=== PATIENT | female | born 1960 | race Caucasian/White ===

== ENCOUNTER 2025-05-25 13:04 | Outpatient (AMB) | payer MEDICARE, SELFPAY ==
--- NOTE | 2025-05-25 13:12 | A.PHYSOV ---
Vital Signs 05/25/25 13:20 Height 5 ft 6.5 in Weight 222 lb BMI 35.3 Intake Visit Reasons: F/U after injection 03/30/2025 -trigger point inj Intake Note: Patient is a 65 year old female here today for follow up after C7-T1 LEE on 03/30/2025. Patient would also like trigger point injections today. Channeler Required: No Allergies aspirin Allergy (Unknown, Verified 05/25/25 13:13) Unknown fentanyl Allergy (Unknown, Verified 05/25/25 13:13) Unknown hydrocodone Allergy (Unknown, Verified 05/25/25 13:13) Unknown latex Allergy (Unknown, Verified 05/25/25 13:13) Unknown methocarbamol (From Robaxin) Allergy (Unknown, Verified 05/25/25 13:13) Unknown morphine Allergy (Unknown, Verified 05/25/25 13:13) Unknown oxybutynin Allergy (Unknown, Verified 05/25/25 13:13) Unknown pregabalin (From Lyrica) Allergy (Unknown, Verified 05/25/25 13:13) Unknown tramadol Allergy (Unknown, Verified 05/25/25 13:13) Unknown viltnmkmccypq-gfdx-fmhnsjsobg-lactate-octoxy Allergy (Unknown, Uncoded 05/25/25 13:13) Unknown HPI Comments Details: History of Present Illness The patient is a 65 year old individual presenting for management of chronic neck pain with trigger point injections. The patient reports that a prior C7-T1 LEE with 60% reduction of her pain provided relief on the right side, but not on the left. Currently, the patient's pain is located on the left side of the neck, radiates down the arm and up into the head, and is rated a 6-7 out of 10. The pain has resulted in significant functional limitations, including being unable to shower for a couple of weeks and difficulty brushing hair due to a large knot and inability to raise the arms. The patient notes a previous injection provided excellent relief from July to March. Today she is requesting trigger point injection bilateral upper trapezius and rhomboid. Pain Description - Location: The patient reports having a pain in the neck. - Laterality: Pain is primarily on the left side, though the patient reports a history of pain on the right side as well. - Radiation: Pain radiates from the neck down the arm and up into the head. - Severity: Current pain level is rated as a 6 or 7 out of 10. - Impact on function: The pain has made it difficult to brush hair, shower for extended periods (couple of weeks), raise arms to wash hair, and walk the dog. - Alleviating factors: A previous injection provided relief from July to March. - Prior treatments: A recent epidural helped the right side but not the left. Procedure: C6-7 LEE 04/14/2020 30% reduction of her pain C7-T1 LEE 08/11/2024 60% reduction of her pain C7-T1 LEE 03/30/2025 60% reduction of her pain PFSH Surgical History (Updated 05/18/25 @ 09:21 by Mary Mathur MA) H/O shoulder surgery Social History (Updated 05/18/25 @ 09:21 by Mary Mathur MA) Alcohol intake: current Alcohol intake frequency: does not drink Patient Tobacco Use Status: Never used Tobacco Use of substances other than those prescribed or required for medical reasons: No Review of Systems Narrative Review of Systems - Neurological: Reports neck pain that radiates down the arm and into the head. - Musculoskeletal: Reports a huge knot in the neck/back area. - Reports difficulty raising arms to wash hair. - Constitutional: Reports episodes of hypotension during painful procedures. Physical Exam Exam Exam: Physical Exam Cervical Spine: Examination of her cervical spine, there is no visible swelling or deformity. She is tender to bilateral upper trapezius with palpable spasm. She is also tender to the rhomboid and paraspinal musculature. Limited range of motion of the cervical spine at end range throughout. Special Tests: Axial Compression test: Negative Spurlings test: Negative Lhermitte's sign is Negative Upper Extremities: Full range of motion bilateral upper extremities. Equal global compensation analyst strength bilaterally. Neuro: Sensation: Intact to upper extremities bilateral to light touch Strength C5 (Elbow Flexion): 5/5 on the left and 5/5 on the right. C6 (Elbow Ext): 5/5 on the left and 5/5 on the right. C7 (Elbow Ext): 5/5 on the left and 5/5 on the right. C8 (Finger Flex): 5/5 on the left and 5/5 on the right. T1 (Finger Abd/Add): 5/5 on the left and 5/5 on the right. DTR: C5 (Biceps): Left 2 Right 2 C6 (Brachioradialis): Left 2 Right 2 C7 (Triceps): Left 2 Right 2 Vasquez sign: Negative No pathologic clonus. No involuntary movement. Vital Signs: BMI result Body Mass Index 35.3 Office Procedures AMB Trigger Point Inject - Phy Therapeutic Injection Details: Trigger point injection bilateral upper trapezius and rhomboid : Patient was educated about the risks, complications and benefits of trigger point injection. Risks and complications include infection, nerve damage, bleeding, collapsed lung. After discussing these risks complications and benefits the patient is eager to proceed. The patient's left upper trapezius and 3 rhomboid muscle spasm was marked cleansed with an alcohol prep. 1 mL of 1% lidocaine was injected into the trigger point with needling. Patient tolerated the procedure well without immediate complication. The procedure was repeated on the right. 26702-Jcxeafv Point Injection 3 or more All charges added?: Procedure code (CPT) selection complete Office Meds lidocaine (PF) 20 mg/mL (2 %) injection solution Performing Provider: DAVIE Babb Performing Location: [facility] Administered by: DAVIE Babb on 05/25/25 16:01 Dose Route Admin Location Dispensed Lot Number Expiration Date [facility] Journeyman Level Acoustic Analyst 160 mg IM 50 mL [id number] Total Dispensed Waste 50 mL 0 % Assessment & Plan Assessment & Plan (1) Cervical radiculopathy: Code(s): M54.12 - Radiculopathy, cervical region Category: Medical (2) Myalgia: Code(s): M79.10 - Myalgia, unspecified site Category: Medical Plan Pain Management - Affect: The pain is significantly impacting the patient's quality of life and ability to perform activities of daily living. - Analgesia: A previous epidural provided partial relief on the right side. - An injection in July provided relief until March. - Current pain is a 6-7/10, and the patient is hoping for trigger point injections to settle it. - Adverse Effects: The patient reports that blood pressure tends to drop during painful procedures. - Activities of Daily Living: The patient reports being unable to shower for a couple of weeks, difficulty brushing hair, and difficulty walking the dog due to pain. - Aberrant Drug Related Behaviors: The patient expresses a desire to avoid stronger medication, stating, I don't want to. Plan Patient was informed and verbally consented to the use of an ambient scribe for clinic note documentation during this visit. 1. Myofascial Pain Syndrome The patient presents with persistent left-sided neck pain rated 6-7/10 with radiation to the arm and head, causing significant functional limitations. Relief from a prior epidural was limited to the right side. The patient requested trigger point injections for symptomatic relief. 2 cervical radiculitis patient responded well to C7-T1 LEE. She will continue her home exercise plan and medications as prescribed. After obtaining consent, trigger point injections with lidocaine were performed. Four trigger points were injected on the more symptomatic left side first, followed by four injections on the right side to prevent contralateral symptoms, as requested by the patient. The patient tolerated the procedure well and was advised to return if symptoms do not improve. I recommend moist heat compresses for 15 minutes up to 5 times daily. Continue her home exercise plan and medications otherwise as prescribed. Insert thank Orders: Orders AMB Trigger Point Injection - Physiatry Today M79.10 - Myalgia, unspecified site Coding Level of Care Code Tele Est Pt Level 3 (23810) Diagnoses Cervical radiculopathy M54.12 Myalgia M79.10 CPT Codes Therapeutic Injection - Ther Injection 2: [id number]-[id number] Point Injection 3 or more ([id number])
[2025-05-25 13:20] VITALS: BMI 35.3
--- OUTSIDE RECORDS SUMMARY | 2025-05-25 16:43 | XMS_ITS | Encounter Summary ---
Author Organization [facility] Address [address] [place] [address] Phone Care Team Providers Care Plastics Worker Name Role Phone Lucila Madrid RN Unavailable [phone] Joellen Green DO Primary Care Provider [phone] Nieves Werner MD Unavailable [phone] Bonny Saenz RN Unavailable [email or web address] Pcp, Unknown Primary Care Provider Unavailabl e Joellen Green DO Primary Care Provider [phone] Joellen Green DO Unavailable [phone] Joellen Green DO Primary Care Provider [phone] Donal Falk MD Primary Care Pr ovider Encounter Details Date Type Department Care Team (Late st Contact Info) Description 09/22/2021 Ancillary Orders [facility] [address] [place] [address] Joellen Green DO [address] [place], [place] [id number] [email or web address] Abnormal finding on breast imaging Social History Tobacco Use Types Packs/Day Years Used Date Smoking Tobacco: Never Smokeless Tobacco: Never Alcohol Use Standard Drinks/Week Comments No 0 (1 standard drink = 0.6 oz pur e alcohol) Comments No Sex and Gender Information Value Date Recorded Sex Assigned at Female 12/01/2019 10:59 AM EDT Legal Sex Female 6:09 AM EST Gender Identity Female 12/01/2019 10:59 AM EDT Sexual Orientation Straight 12/01/2019 10 :59 AM EDT documented as of this encounter Plan of Treatment Upcoming Encounters Date Type Department Care Team (Late st Contact Info) Description 07/16/2025 12:10 PM EST Office Visit [facility] [address] [place] [address] Mainor Cody DO [address] [place] [address] [email or web address] documented as of this encounter Goals Goal Patient Goal Type Associated Problems Recent Progress Patient-Stated? Author Reduce and/or manage chronic pain Care Plan Chronic Pain/Pain Management Issues No change(2020 1:36 PM EDT) No Sisi Christensen, RN Note: Barriers: Access to Medications documented as of this encounter Results * BI MAMMOGRAM DIAGNOSTIC WITH TOMOSYNTHESIS WITH CAD (LEFT) (11/17/2021 2:50 PM EDT) Anatomical Region Laterality Modality Breast Left, Breast Bilateral Left Ma mmography 11/17/2021 2:25 PM EDT Impressions 11/17/2021 3:07 PM EDT Left Breast: Negative, no suspicious mammographic findings. Left Assessment: BI-RADS 1 Negative. Left Recommendation: Left Mammography Screening Left Recommendations Due Date: 10 Months Results were discussed with the patient at the time of the study. OVERALL Assessment: BI-RADS 1 Negative. The recommendation above has been entered into a reminder system to monitor and facilitate patient compliance. Narrative 11/17/2021 3:07 PM EDT Indication: Questioned left focal asymmetry on recent screening mammogram. TECHNIQUE: Digital Mammography and tomosynthesis were used to obtain images. Computer Aided Detection was used to aid in interpretation. COMPARISON: Comparison is made with relevant prior imaging in PACS. Density: There are scattered areas of fibroglandular density FINDINGS: Left Breast: The focal asymmetry questioned on the recent screening study in the central inner breast does not persist on additional imaging, consistent with benign superimposition of breast parenchyma. Parenchymal pattern in this area is similar compared to prior mammograms from 2018 and 2017. No significant masses, suspicious calcifications, or other abnormalities are seen. Procedure Note Micheal Cervantes MD - 11/17/2021 Indication: Questioned left focal asymmetry on recent screening mammogram. TECHNIQUE: Digital Mammography and tomosynthesis were used to obtain images. ComputerAided Detection was used to aid in interpretation. COMPARISON: Comparison is made with relevant prior imaging in PACS. Density: There are scattered areas of fibroglandular density FINDINGS: Left Breast: The focal asymmetry questioned on the recent screening study in thecentral inner breast does not persist on additional imaging, consistentwith benign superimposition of breast parenchyma. Parenchymal pattern inthis area is similar compared to prior mammograms from 2018 and 2017. Nosignificant masses, suspicious calcifications, or other abnormalities areseen. IMPRESSION: Left Breast: Negative, no suspicious mammographic findings. Left Assessment: BI-RADS 1 Negative. Left Recommendation: Left Mammography Screening Left Recommendations Due Date: 10 Months Results were discussed with the patient at the time of the study. OVERALL Assessment: BI-RADS 1 Negative. The recommendation above has been entered into a reminder system tomonitor and facilitate patient compliance. us Joellen Green DO IMG MG EXAMS Final Resul t documented in this encounter Visit Diagnoses Diagnosis Abnormal finding on breast imaging Abnormal finding on breast imaging documented in this encounter Additional Health Concerns Active Problems Noted Date Diagnosed Date Chronic Pain/Pain Management Issues 10/24/2019 Infection Onset Date Last Indicated Resolved Time CoV-Presumed 07/18/2022 07/18/2022 08/08/2022 1:23 AM EST Assessment Noted Time PHQ-9 Depression Total Score: 8 11/30/19 18 1:21 PM EDT PHQ-2 Depression Total Score: 2 03/15/20 21 12:41 PM EDT documented as of this encounter Care Teams Plastics Worker Relationship Specialty Start Date End Date Joellen Green DO [address] [address] [email or web address] PCP - General Family Medicine 06/01/20 06/11/22 Pcp, Unknown PCP - General 06/12/22 07/17/22 Joellen Green DO [address] [facility] [place] [address] [email or web address] PCP - General Family Medicine 07/18/22 11/07/22 Joellen Green DO [address] [place] [address] [email or web address] PCP - General Family Medicine 11/08/22 05/14/23 Donal Falk MD [address] [place] [address] PCP - General Family Medicine 05/15/23 Lucila Madrid RN [address] [place] [id number] [email or web address] Registered Nurse 03/20/17 Nieves Werner MD [address] [place] [address] [email or web address] Cardiology 05/30/21 Bonny Saenz, KAREEM [address] [place] [address] [email or web address] TMP Unit Controller 08/04/21 05/11/22 Joellen Green DO [address] [place] [address] [email or web address] Insurance Assigned Provider 10/02/20 09/30/22 documented as of this encounter Additional Source Comments The information contained in this document represents components of the legal health record. It is not the complete legal health record.[facility]
--- OUTSIDE RECORDS SUMMARY | 2025-05-25 16:43 | XMS_ITS | Encounter Summary ---
Author Organization [facility] Address [address] [place] [phone] Phone Care Team Providers Care Polysom Tech Name Role Phone Cristina Block MD Unavailable Lucila Madrid RN Unavailable [phone] Joellen Green DO Primary Care Provider [phone] Ghanshyam Kc RN Unavailable [email or web address] Nieves Werner MD Unavailable [phone] Bonny Saenz RN Unavailable [email or web address] Pcp, Unknown Primary Care Provider Unavailabl e Joellen Green DO Primary Care Provider [phone] Joellen Green DO Unavailable [phone] Joellen Green DO Primary Care Provider [phone] Donal Falk MD Primary Care Pr ovider Encounter Details Date Type Department Care Team (Late st Contact Info) Description 05/30/2021 Procedure Pass [facility] Cardiology Department [facility] - [address] [facility] [place] [address] Social History Tobacco Use Types Packs/Day Years [...] 12:10 PM EST Office Visit [facility] [place] [address] Mainor Cody DO [address] [place] [phone] documented as of this encounter Goals Goal Patient Goal Type Associated Problems Recent Progress Patient-Stated? Author Reduce and/or manage chronic pain Care Plan Chronic Pain/Pain Management Issues No change(2020 1:36 PM EDT) No Sisi Christensen, RN Note: Barriers: Access to Medications documented as of this encounter Visit Diagnoses Not on filedocumented in this encounter Additional Health Concerns Active Problems Noted Date Diagnosed Date Chronic Pain/Pain Management Issues 10/24/2019 Infection Onset Date Last Indicated Resolved Time CoV-Exposed Comment:Recent close contact documented in the COVID-19 Amb Triage Form 06/05/2021 06/06/2021 06/20/2021 1:[address] CoV-Presumed 07/05/2021 07/05/2021 07/20/2021 3:53 PM EST CoV-Presumed 07/18/2022 07/18/2022 08/08/2022 1:23 AM EST Assessment Noted Time PHQ-9 Depression Total Score: 8 11/30/19 18 1:21 PM EDT PHQ-2 Depression Total Score: 2 03/15/20 21 12:41 PM EDT documented as of this encounter Care Teams Polysom Tech Relationship Specialty Start Date End Date Joellen Green DO [address] [address] PCP - General Family Medicine 12/8/20 12/18/22 Pcp, Unknown PCP - General 06/12/22 07/17/22 Joellen Green DO [address] [place] [address] [email or web address] PCP - General Family Medicine 07/18/22 11/07/22 Joellen Green DO [address] [place] [address] [email or web address] PCP - General Family Medicine 11/08/22 05/14/23 Donal Falk MD [address] [place] [address] PCP - General Family Medicine 05/15/23 Cristina Block MD [address] [place] [address] [email or web address] Historical LMR Provider 01/07/17 07/02/21 Lucila Madrid RN [address] [place] [phone] [email or web address] Registered Nurse 03/20/17 Ghanshyam Kc, KAREEM [address] [place] [address] [email or web address] TMP Shotblaster 03/29/21 08/03/21 Nieves Werner MD [address] [place] [address] [email or web address] Cardiology 05/30/21 Bonny Saenz RN [address] [place] [address] [email or web address] TMP Shotblaster 08/04/21 05/11/22 Joellen Green DO [address] [address] [email or web address] Insurance Assigned Provider 10/02/20 09/30/22 documented as of this encounter Additional Source Comments The information contained in this document represents components of the legal health record. It is not the complete legal health record.[facility]
--- OUTSIDE RECORDS SUMMARY | 2025-05-25 16:43 | XMS_ITS | Clinical Summary ---
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 has normalized Denies recent illness Will continue to work on healthy lifestyle modifications No need for further workup at this time given normalization Noted elevated anion gap on CMP today - probably due to hyperglycemia and dehydration Glucose 164 today Advised increasing water intake and repeating the lab in one week Atypical chest pain 03/15/2021 01/10/20 Assessment & Plan (03/28/2021 6:55 PM EDT): No recurrence of chest pain since last visit Pending cardiology appt to discuss possible chemical stress test Assessment & Plan (03/15/2021 3:18 PM EDT): Hasn't had it for two weeks For three weeks before, once per week would wake up in the middle of the night with crushing, heavy pressure across center of her chest 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 Couldn't reproduce the pain with palpation When on Benjamín previously, saw a rn otolaryngology (this was years ago) did a stress test, echo Saw rn otolaryngology in [place] in 2019 but none currently During these episodes, pain lasted five minutes and went away with deep breathing Hx DM Dad with CAD Cannot tolerate exercise stress test Plan: Refer to cardiology for establishment of care and likely coordination nuclear stress test Candidiasis of breast 03/15/20212020 Assessment & Plan (03/28/2021 6:55 PM EDT): Resolved Assessment & Plan (03/15/2021 3:08 PM EDT): Jayashree rash noted beneath fold R breast Seen on breast exam Patient noted persistent itching Worse with sweating Rx Nystatin Grief 11/29/2020 05/23/2021 Assessment & Plan (11/29/2020 2:16 PM EDT): Patient's father this morning Fell twice in the past week +Frailty ? 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 No injury. Tendinitis on and off over years, but never swollen like this. Fingers swollen. Had to remove ring. Pain shoots up into elbow. Pain mostly in extension and hurts to straighten fingers. Not red or hot- no skin changes- no signs cellulitis. Left is usually her good arm. Very limiting. Can't take ibuprofen- upsets stomach. Dolobid makes heart race. Does not take anymore. Recent normal thyroid and lytes. Try meloxicam. Aware this is an NSAID and can have the same SE as the other 2 but will try and see. If after one week, no better, then get xray to see if sig arthritis. consider hand surg consult for better diagnosis as needed. Wear soft wrist brace for support. Vertigo 12/11/2019 01/09/2022 Assessment & Plan (12/11/2019 1:24 PM EDT): Always has a low level of vertigo - to the right side, but now much worse in last 2-3 days. Feels like falling to right and left. Room spinning if turns head fast. Cannot do self- wesley maneuver due to neck pain. Vertigo has worsened in the past from medications- both statins and levothyroxine. Last week changed three medications all at once. [place] thyroid to levothyroxine Simvastatin to atorvastatin And increased dose of nortriptylline from 25 mg to 50 mg. Plan: be careful not fall. Sent in meclizine- aware of sedation. Stop statin and decrease tricyclic back to 25 mg. Continue levothyroxine. Hopefully vertigo will improve. If not then will have to change back to armour. If improves, then add other meds back in one per week so she can determine which one may be the trigger. Check back in 1-2 weeks and we will make usp plan. Cough 07/23/2019 03/15/2021 Assessment & Plan (07/23/2019 10:34 AM EST): Cough with rales/ rhonchi on exam. Check cxr. Doxy will cover sinusitis and PNA but would like to confirm diagnosis. Declines medrol dose pack. Lungs with poor air mvmt though po2 ok so far. Mildly labored on exam- high risk d/t back pain with cough so not taking deep breaths to avoid coughing. Would consider inhaled steroid- but may be expensive. Prefers to start with antibiotic and albuterol for now. Will call if not improving. Dysuria 07/10/2019 03/15/2021 Assessment & Plan (07/10/2019 9:31 AM EST): Burning with urination for few days. Second aurea ein one month. Same urine culture result : 50-100,000 mixed zakia. Last time took macrobid. Today agrees to cipro- will do 3 days. Aware of SE. If occurs again, send to urology for work up. Weight gain 11/25/2018 03/15/2021 Assessment & Plan (11/25/2018 2:16 PM EDT): 214- 222 in last 1-2 weeks. Feels like eating better than ever in last 1 month. fbg 146- yesterday. Much better- had been in 200s. Actos?- weight gain in lesser known SE. Right hand paresthesia 11/25/201801/09 Assessment & Plan (11/25/2018 2:27 PM EDT): See above- from fall. Segmental and somatic dysfun ction of upper extremity 10/07/2018 04/07/2019 Assessment & Plan (10/07/2018 4:50 PM EDT): Osteopathic procedure: Somatic dysfunction: Verbal consent for Osteopathic treatment obtained from patient. Treated UE, cervical, thoracic spine, ribs with cranial osteopathy, myofascial release, and Balanced ligamentous tension. Pt tolerated procedure well with good relief of discomfort. Will return for re-evaluation prn. Osteopathic treatment was directed not only to the primary area of complaint, but also to the secondary areas of biomechanical compensation. Arm edema 10/03/2018 12/01/2019 Assessment & Plan (10/07/2018 4:47 PM EDT): Upper arm edema on right since fracture. Has gotten slightly better. Still sig larger than left. ROM greatly improved but not back to baseline. Finished home OT. Will send for outpatient follow up. . Doing exercises. Reviewed them with her. One day couple weeks slept on arm and woke with more swelling. Now slightly back down. reviewed signs/symptoms of DVT. Not red, not hot, not tender to touch, good pulses. For now no signs but patient will watch out for them. Reduced ROM from shoulder. PT has kept her from becoming frozen, but still markedly reduced. The decision to perform OMT was based on today's history and physical exam. Closed supracondylar fractur e of right humerus with routine healing 08/01/2018 09/08/2020 Assessment & Plan (08/01/2018 1:12 PM EST): 07/26/18, fell at home. Tripped on blower blast furnace and fell onto right arm. Seen at [facility]. Humerus fracture in two places. Followed by Dr. Orellana. (ortho). Pt has chronic pain syndrome on a good day so now is struggling with mobility, hygiene. Safety at home. morphine use as noted below. Discussed keeping it to minimum to avoid fall risk. Refer for home care for personal hygiene and OT for assistive devices and strategies for household and hygiene task completion in her current state. Thrombocytosis 07/01/2018 01/09/2022 Assessment & Plan (03/17/2021 9:50 PM EDT): Most recent 433 Consistently in 400s Previously discussed with PCP taking low dose ASA, but unable to tolerate due to tinnitus History of iron deficiency anemia Also with RA However, patient with persistent, unexplained pruritis Likely due to inflammation as a result of RA However, will check iron Patient will also be referred to hematology given persistent pruritis and no prior w/u by heme Assessment & Plan (07/02/2018 2:15 PM EST): Cbc and ESR ordered Low back pain 12/10/2017 01/09/2022 Assessment & Plan (12/01/2019 1:35 PM EDT): Stopped morphine about 1 year ago. Takes baclofen prn. Tizanidine too strong. Parafon forte- too expensive. Assessment & Plan (07/02/2018 2:17 PM EST): In more pain, rations morphine due to extreme itching. Dolobid works well , but worried about SE. Uses about 1 weekly . Worried about stroke risk. I agree this is a valid concern (black box warning). She could consider taking it 3-4x/week which would increase risk but not as much as daily. She will consider, keeping risks in mind. Assessment & Plan (03/31/2018 5:05 PM EDT): Uses morphine regularly for pain, though pain worse lately. Does not take more due to severe itching. Meets regularly with pain management doc in [place]. He agrees this is the best ongoing plan, despite reaction. Already on supportive psych meds. Reactions to most other options. No concern for abuse or diversion. Refilled today. Mild persistent asthma with exacerbation 10/09/2017 01/09/2022 Acute non-recurrent maxillary sinusitis 10/19/2016 12/01/2019 Assessment & Plan (07/23/2019 10:35 AM EST): Day 8 of cold symptoms, fever gone and now returned. Feeling worse with new onset ear pain and sinus headache- worse right sided, frontal and maxillary. Treat with doxy. Accidental fall 08/21/2016 12/01/2019 Assessment & Plan (11/26/2018 7:57 PM EDT): Fall at [employer] about 3 weeks ago. Tripped on bricks. Few injuries on feet. Fell on forehead and nose. - lacerations. Left wrist sore. Since fall right numbness and tingling in right hand. Whole hand- rotates, sometimes palm, sometimes just pinky. Tremors that she emailed about now better. Advised to follow up with neurology- Dr Gamble. Not sure if coming from TOS, vs cervical vs periphery. No imaging for now. Continue work with PT. Assessment & Plan (08/21/2016 3:47 PM EST): 3 days ago- on 08/18, passed out and fell down about 7 stairs at friend's house. Was feeling fine that day up until then. Kept in hospital for 2 days on telemetry- all normal- need complete discharge notes. Pt brought imaging reports- all normal: neck, wrist, hip, rib xray and head CT. Concussion without loss of consciousness 08/21/2016 11/25/2018 Assessment & Plan (09/13/2016 12:01 PM EDT): Fall on 08/18. Still with sea sickness feeling. Worse with any activity. Gait unsteady. Makes her feel woozy. Light sensitive, but not nearly as bad as few weeks ago. Had to leave [employer] this past Sunday due to over stimulation from choir- made her nauseas. Hard to focus on getting info ready for taxes. Headaches- worse with more focus and activity. Bruise on head almost gone. Although pt is frustrated by slow recovery, her exam is normal and symptoms are within normal for concussion. Reassured her. Reviewed screen and activity restrictions. She has not taken morphine three weeks as she is worried about affects on her brain--she took once since fall and felt very woozy--that was 3 weeks ago. Advised her to try again at night time on a day when nothing to do next day. Poor sleep from pain won't help recovery. Assessment & Plan (08/21/2016 7:54 PM EST): Actually hard to tell if LOC because fell after syncope, then patient not sure how long until she regained consciousness. - prob few minutes. Watson snot remember anything until in ambulance, but according to friend was talking before that and gave her sister's phone number. Hit head on floorboard as she came down steps. Now with blurry vision, +headache- better with icing. Having some vertigo and sea sick like illness. +nausea. Neg neuro exam except slow on finger to nose and + nystagmus equal emilie. Discussed concussion precautions- limit screen time, rest, treat pain prn though limit morphine if possible as may worsen mental status. Will refer to neuro prn. Syncope and collapse 08/21/2016 019 Assessment & Plan (01/20/2017 9:18 AM EDT): Pt has had not further episodes. Ok to resume driving at 6 month ravi- end of January. Assessment & Plan (09/13/2016 11:57 AM EDT): [facility] cardiology- [facility] [place] last week. Dr. Guerin. [phone] Scheduled echo, stress test and 30 day monitor. Will request note. Should also f/u with neurology- placed referral, she has not heard from them yet--we will reach out, preferably within one month. I would like input on her med regimen. Assessment & Plan (08/21/2016 7:51 PM EST): ? Cause of syncope. Observed in patient for 2 days. Discharge summary indicates possible multiple medications, but having known this patient, she is actually on lower doses now than she was in the past. Was on cymbalta in addition to the savella- stopped last year. While this is possible, not top on my list. All of the current meds are considered essential to patient. Discussed possibility of discontinuing each one--she rejects idea. Without clear evidence will keep regimen same for now. ordered MRI/MRA- plan neuro referral based on results. For now cardio referral for eval and event monitor. Pt cannot drive for now due to concussion--not sure how long that will last. Elderly father has to take to app so requests cardio she knows in [place]- agreed, though urged her to consider [facility] if possible. Foreign body in right foot 08/02/2016 0 08/21/2017 Assessment & Plan (08/03/2016 11:46 AM EST): Small calloused FB in middle of right heel. No signs surrounding irritation or infection. No end or edge palpable for removal. Refer to podaitry for assessment and possible removal. Encounters Date Type Department Care Team Description 05/18/2025 Telephone [facility] [address] [place] [address] [place] [phone] Lexus Monique MA 03/16/2025 Refill [facility] [address] [place] [address] Mainor Cody, Medication Refill from Last 3 Months Immunizations Immunization Administration Dates Next Due COVID-19 (Pre-04/16) Pfizer Vaccine, mRNA, PF 02/06/2021,09/30/2020,09/09/2020 Influenza Quadrivalent MDCK Preservative Free IM 07/02/2018 Influenza Quadrivalent Prese rvative Free IM 05/27/2021,04/18/2019,04/19/2017,05/24 Influenza Recombinant Hernandez valent Preservative Free IM 05/09/2022,04/15/2020 Influenza, Unspecified Formulation 04/18/2019 Pneumococcal polysaccharide PPSV23 02/07/2020 Tdap 01/18/2022 Zoster recombinant 01/23/2023 Family History Medical History Relation Comments Coronary artery disease Father Hypothyroidism Father hypothyroidism Skin cancer Father Hypothyroidism Mother hypothyroidism Multiple sclerosis Mother Multiple scle rosis Skin cancer Mother Breast cancer Paternal Aunt Type 2 Diabetes Unspecified diabetes mellitu s type 2 Early CAD Neg Hx Relation Status Comments Father Mother Paternal Aunt Unspecified Social History Tobacco Use Types Packs/Day Years Used Date Smoking Tobacco: Never Smokeless Tobacco: Never Tobacco Cessation:Counseling Given: Not Answered Alcohol Use Standard Drinks/Week Comments No 0 (1 standard drink = 0.6 oz pur e alcohol) Education Answer Date Recorded Are you interested in more education? Not on florence e 10/20/2022 Are you concerned about learning? Not on file 10/20/2022 No 10/20/2022 No 10/20/2022 Digital Access Answer Date Recorded No 11/15/2022 No 11/15/2022 Reliable internet access at home? Not on file 11/15/2022 Device with a working camera? Not on file Comments No Sex and Gender Information Value Date Recorded Sex Assigned at Female 12/01/2019 10:59 AM EDT Legal Sex Female 6:09 AM EST Gender Identity Female 12/01/2019 10:59 AM EDT Sexual Orientation Straight 12/01/2019 10 :59 AM EDT Last Filed Vital Signs Vital Sign Reading Time Taken Comments Blood Pressure 110/60 01/15/2025 11:51 AM EDT Pulse 87 01/15/2025 11:51 AM EDT Temperature 36.5 C (97.7 F) 03/21/2022 11:00 AM EDT Respiratory Rate 16 10/04/2021 10:5 4 AM EDT Oxygen Saturation 99% 01/15/2025 11: 51 AM EDT Inhaled Oxygen Concentration - - Weight 100.7 kg (222 lb) 01/09/2022 9:4 8 AM EDT patient reported Height 168.9 cm (5' 6.5 ) 09/25/2024 10 :34 AM EDT Body Mass Index 35.29 01/09/2022 9:48 AM EDT Plan of Treatment Upcoming Encounters Date Type Department Care Team (Late st Contact Info) Description 07/16/2025 12:10 PM EST Office Visit [facility] [address] [place] [address] [phone] Mainor Cody DO [address] [place] [phone] .[facility] Health Maintenance Due Date Last Done Comments COLOGUARD 2007 COLONOSCOPY 2007 COLORECTAL CANCER SCREENING 2007 FIT TEST 2007 FOBT 2007 SIGMOIDOSCOPY 2007 VIRTUAL COLONOSCOPY 2007 RSV VACCINE (1 - Risk 50-74 years 1-dose series) 2012 DIABETIC EYE EXAM 02/27/2018 02/27/2017, , 02/27/2017, Additional history exists PNEUMOCOCCAL VACCINES (50+ years) (2 of 2 - PCV) 02/06/2021 02/07/2020 PAP SMEAR 11/16/2021 11/16/2016, 11/16/2016 DEPRESSION SCREENING 01/09/2023 01/09/2022, 01/10/20 22 ZOSTER VACCINES (2 of 2) 03/20/2023 01/23/2023 CREATININE LEVEL 10/17/2023 10/16/2022, , 04/13/2022, Additional history exists POTASSIUM LEVEL 10/17/2023 10/16/2022, 07/26, 04/13/2022, Additional history exists INFLUENZA VACCINE (#1) 2025 2, 05/27/2021, 04/15/2020, Additional history exists COVID-19 VACCINE ( season) 2025 06/15/2022, 02/06/2021, 09/30/2020, Additional history exists HEMOGLOBIN A1C 03/26/2025 09/24/2024, 06/0 11/2023, 05/02/2023, Additional history exists BLOOD PRESSURE 07/18/2025 01/15/2025 MAMMOGRAM 11/03/2025 11/03/2024, 10/23, 09/15/2022, Additional history exists Adult Td,Tdap Booster 01/19/2032 01/18/2022 HIV ONE-TIME SCREENING (18-65 YEARS) Completed 03/26/2018 HEPATITIS C SCREENING Completed 06/03/2020 , 06/03/2020, 06/03/2020, Additional history exists SMOKING STATUS SCREENING (Once After 26 Yrs) Completed 09/25/2024 HEPATITIS A VACCINES Aged Out No long er eligible based on patient's age to complete this topic HIB VACCINES Aged Out No longer eligi ble based on patient's age to complete this topic MENINGOCOCCAL VACCINES (ACWY) Aged Out No longer eligible based on patient's age to complete this topic MENINGOCOCCAL VACCINES (B) Aged Out N o longer eligible based on patient's age to complete this topic Goals Goal Patient Goal Type Associated Problems Recent Progress Patient-Stated? Author Reduce and/or manage chronic pain Care Plan Chronic Pain/Pain Management Issues No change(2020 1:36 PM EDT) No Sisi Christensen, RN Note: Barriers: Access to Medications Medical Devices Not on file Procedures Procedure Name Priority Date/Time Associated Diagnosis Comments POCT HEMOGLOBIN A1C Routine 11/29/2023 1 2:14 PM EDT Type 2 diabetes mellitus with diabetic mononeuropathy, with long-term current use of insulin COMPREHENSIVE METABOLIC PANEL (CMP) Routine 10/16/2022 12:16 PM EDT Rheumatoid arthritis involving multiple sites with positive rheumatoid factor BI MAMMOGRAM SCREENING WITH TOMOSYNTHESIS WITH CAD (BILATERAL) Routine 09/15/2022 11:24 AM EDT Visit for screening HEPATITIS C ANTIBODY, QUALITATIVE Routine 06/03/2020 1:29 PM EST Rheumatoid arthritis involving multiple sites with positive rheumatoid factor PAP TEST Routine 11/16/2016 12:00 AM EDT from Last 3 Months or Most Recently Relevant to Health Maintenance Results * (ABNORMAL) POCT Hemoglobin A1c (11/29/2023 12:14 PM EDT) Hemoglobin A1c 7.2(A) 4.2 - 5.8 % Other 11/29/2023 12:1 4 PM EDT Mainor Cody LAB POCT ENTER/EDIT ORDERABLES F inal Result * (ABNORMAL) Comprehensive metabolic panel (10/16/2022 12:16 PM EDT) SODIUM 139 136 - 145 mmol/L [facility] POTASSIUM 4.3 3.5 - 5.2 mmol/L [facility] CHLORIDE 100 95 - 106 mmol/L [facility] CO2 24 20 - 31 mmol/L [facility] BUN 16 9 - 23 mg/dL [facility] CREATININE 0.86 0.50 - 1.30 mg/dL [facility] GLUCOSE 158(H) 74 - 106 mg/dL [facility] ALBUMIN 4.2 3.5 - 4.8 g/dL [facility] TOTAL PROTEIN 7.2 5.7 - 8.2 g/dL [facility] CALCIUM 9.6 8.7 - 10.4 mg/dL [facility] ALKALINE PHOSPHATASE 62 27 - 129 U/L [facility] TOTAL BILIRUBIN 0.4 0.0 - 1.0 mg/dL [facility] AST 12 6 - 40 U/L [facility] ALT 19 10 - 49 U/L [facility] GLOBULIN 3.0 1.9 - 4.1 g/dL [facility] EGFR 77 >60 mL/min/1.7 3m2 [facility] Comment:Estimated glomerular filtration rate calculated using the CKD-EPI refit equation. ANION GAP 15 3 - 17 mmol/L [facility] Blood 10/16/2022 12:1 6 PM EDT 10/16/2022 1:00 PM EDT us Angeline Hu MD LAB BLOOD BKR ORDERABLES F inal Result [facility] [address] [place] [address] * BI MAMMOGRAM SCREENING WITH TOMOSYNTHESIS WITH CAD (BILATERAL) (09/15/2022 11:24 AM EDT) Anatomical Region Laterality Modality Breast Left, Breast Right, Breast Bilateral Bila teral Mammography 09/15/2022 11:4 6 AM EDT Impressions 09/15/2022 11:51 AM EDT Negative, no mammographic evidence of malignancy. Routine screening mammography is recommended in one year. OVERALL Assessment: BI-RADS 1 Negative. The patient was sent a letter with the results of the exam and follow-up recommendation. The recommendation above has been entered into a reminder system to monitor and facilitate patient compliance. Narrative 09/15/2022 11:51 AM EDT BI MAMMOGRAM SCREENING WITH TOMOSYNTHESIS WITH CAD (BILATERAL): Reason for exam: Screening. No new breast complaints. TECHNIQUE: Digital Mammography and tomosynthesis were used to obtain images. Computer Aided Detection was used to aid in interpretation COMPARISON: Comparison is made with relevant prior imaging in PACS. BREAST DENSITY: There are scattered areas of fibroglandular density FINDINGS: There are no suspicious masses, calcifications, or other abnormalities noted. Procedure Note Lakhwinder Parker MD - 09/15/2022 BI MAMMOGRAM SCREENING WITH TOMOSYNTHESIS WITH CAD (BILATERAL): Reason for exam: Screening. No new breast complaints. TECHNIQUE: Digital Mammography and tomosynthesis were used to obtain images. ComputerAided Detection was used to aid in interpretation COMPARISON: Comparison is made with relevant prior imaging in PACS. BREAST DENSITY: There are scattered areas of fibroglandular density FINDINGS: There are no suspicious masses, calcifications, or otherabnormalities noted. IMPRESSION: Negative, no mammographic evidence of malignancy. Routine screening mammography is recommended in one year. OVERALL Assessment: BI-RADS 1 Negative. The patient was sent a letter with the results of the exam and follow-uprecommendation. The recommendation above has been entered into a remindersystem to monitor and facilitate patient compliance. us Joellen Elijah Green DO IMG MG EXAMS Final Resul t * Hepatitis C antibody, qualitative (06/03/2020 1:29 PM EST) HCV ANTIBODY Negative Negative [facility] Comment:Test Methodology: Ad via [email or web address] Blood 06/03/2020 1:29 PM EST 06/03/2020 1:52 PM EST us Angeline Hu MD LAB BLOOD BKR ORDERABLES F inal Result [facility] [address] [place] [address] * Pap Smear (11/16/2016 12:00 AM EDT) 11/16/2016 11/17/2016 8:5 4 AM EDT Narrative SEE NARRATIVE - 11/23/2016 8:26 AM EDT [facility] [address] [place] [address] CHANNELER Cytology Report FINAL DIAGNOSIS A. CERVICAL, LIQUID BASED SPECIMEN: SPECIMEN ADEQUACY: Satisfactory for evaluation; transformation zone present. INTERPRETATION: NEGATIVE FOR INTRAEPITHELIAL LESION OR MALIGNANCY. This specimen was analyzed by the automated ThinPrep Imaging System ([email or web address] and manually rescreened by a screening nurse and/or pathologist. Electronically Signed Out By: ANNMARIE Mccauley(ASCP) ANNMARIE Marte(ASCP) Cervical cytology is a screening test primarily for squamous cancers and precursors and has associated false-negative and false-positive results. New technologies such as liquid-based preparations may decrease but will not eliminate all false-negative results. Regular sampling and follow-up of unexplained clinical signs and symptoms are recommended to minimize false negative results. Interpretation of this material was performed at: [facility], Department of Pathology [address] [address] Diazo Technician: zOzie Robertson M.D. PROCEDURES/ADDENDA HPV Testing (Requested) Ordered Date: 11/17/2016 HPV HIGH RISK NEGATIVE Negative for messenger RNA (mRNA) of the high-risk human papillomavirus (HPV) types 16, 18, 31, 33, 35, 39, 45, 51, 52, 56, 58, 59, 66, and 68 by [employer] HPV assay, a target amplification nucleic acid probe test for the qualitative detection of E6/E7 viral mRNA. CLINICAL HISTORY Date of Last Menstrual Period: Not Provided Menstrual History: Post Menopausal SPECIMEN SOURCE A: CERVICAL, LIQUID BASED SPECIMEN GROSS DESCRIPTION One ThinPrep vial received. Patient Name: CESAR MUNOZYNE : 1960 (Age: 56) Sex: F Institution: [facility] Location: [facility] Date of Collection: 11/16/2016 Date of Reported: 11/23/2016 08:26 Results to: Baylee Guerrero DO Baylee Guerrero DO CYTOLOGY ORDERABLES Final Result SEE NARRATIVE from Last 3 Months or Most Recently Relevant to Health Maintenance Additional Health Concerns Active Problems Noted Date Diagnosed Date Chronic Pain/Pain Management Issues 10/24/2019 Insurance [employer] REPLAC[employer] MEDICARE PART A & B [employer] RE[employer] MEDICARE PART A & B [employer] REPL[employer] MEDICARE PART A & B [employer] REPLAC[employer] MEDICARE PART A & B [employer] REPLAC[employer] MEDICARE PART A & B [employer] REPLAC[employer] MEDICARE PART A & B [employer]MO REPLAC[place] [employer] REPLACEMENT [facility] MEDICARE PREFERRED HMO REPLACEMENT [id number] [employer] REPLAC[employer] REPLACEMENT [facility] [place] [phone] [employer] REPLACEMENT [employer]AC[employer] Advance Directives For more information, please contact: [phone] (9AM - 5PM [facility], Sunday-Sunday) Documents on File Type Date Recorded Patient Yard Assistant Expl anation Healthcare Proxy 01/09/2022 HCP Care Teams Refrigerator Glazier Relationship Specialty Start Date End Date Donal Falk MD [address] [place] [address] PCP - General Family Medicine 05/15/23 Lucila Madrid RN [address] [place] [phone] [email or web address] Registered Nurse 03/20/17 Nieves Werner MD [address] [place] [address] Cardiology 05/30/21 Additional Source Comments The information contained in this document represents components of the legal health record. It is not the complete legal health record.[facility]
--- OUTSIDE RECORDS SUMMARY | 2025-05-25 16:43 | XMS_ITS | Encounter Summary ---
Author Organization [facility] Address [address] [place] [address] Phone Care Team Providers Care Pipe Processor Name Role Phone Lucila Madrid RN Unavailable [phone] Joellen Green DO Primary Care Provider Nieves Werner MD Unavailable [phone] Bonny Saenz RN Unavailable [email or web address] Pcp, Unknown Primary Care Provider Unavailabl e Joellen Green DO Primary Care Provider [phone] Joellen Green DO Unavailable [phone] Joellen Green DO Primary Care Provider Donal Falk MD Primary Care Pr ovider Encounter Details Date Type Department Care Team (Late st Contact Info) Description 11/17/2021 Procedure Pass [facility]- Breast Imaging- [address] [address] Social History Tobacco Use Types Packs/Day Years [...] 12:10 PM EST Office Visit [facility] [address] Mainor Cody DO [address] [place] [address] [email or web address] documented as of this encounter Goals Goal [...] Assessment Noted Time PHQ-9 Depression Total Score: 11 022 9:58 AM EDT PHQ-2 Depression Total Score: 1 01/10/20 22 9:58 AM EDT documented as of this encounter Care Teams Pipe Processor Relationship Specialty Start Date End Date Joellen Green DO 3 Kelsea Dasilav [address] [place] [address] PCP - General Family Medicine 06/01/20 06/11/22 Pcp, Unknown PCP - General 06/12/22 07/17/22 Joellen Green DO 3 Kelsea Dasilva [facility] [place] [address] PCP - General Family Medicine 07/18/22 11/07/22 Joellen Green DO 3 Kelsea Dasilva [address] [place] [address] [email or web address] PCP - General Family Medicine 11/08/22 05/14/23 Donal Falk MD 3 Kelsea Dasilva [address] [place] [address] PCP - General Family Medicine 05/15/23 Lucila Madrid RN [address] [place] [address] [email or web address] Registered Nurse 03/20/17 Nieves Werner MD [address] [place] [address] [email or web address] Cardiology 05/30/21 Bonny Saenz RN [address] [place] [address] [email or web address] Telecommunications Specialist 08/04/21 05/11/22 Joellen Green DO 3 Kelsea Dasilva [address] [place] [address] [email or web address] Insurance Assigned Provider 10/02/20 09/30/22 documented as of this encounter Additional Source Comments The information contained in this document represents components of the legal health record. It is not the complete legal health record.[facility]
--- OUTSIDE RECORDS SUMMARY | 2025-05-25 16:43 | XMS_ITS | Encounter Summary ---
Author Organization [facility] Address [address] [address] Phone Care Team Providers Care Photogrammetrist Name Role Phone Lucila Madrid RN Unavailable [phone] Joellen Green DO Primary Care Provider [phone] Ghanshyam Kc RN Unavailable [email or web address] Nieves Werner MD Unavailable [phone] Bonny Saenz RN Unavailable [email or web address] Pcp, Unknown Primary Care Provider Unavailabl e Joellen Green DO Primary Care Provider [phone] Joellen Green DO Unavailable [phone] Joellen Green DO Primary Care Provider [phone] Donal Falk MD Primary Care Pr ovider Encounter Details Date Type Department Care Team (Late st Contact Info) Description 07/20/2021 Procedure Pass [facility]- Breast Imaging- [address] [address] Social History Tobacco Use Types Packs/Day Years [...] 12:10 PM EST Office Visit [facility] [address] Mainor Cody DO [address] [place] [address] [email or web address] documented as of this encounter Goals Goal Patient Goal Type Associated Problems Recent Progress Patient-Stated? Author Reduce and/or manage chronic pain Care Plan Chronic Pain/Pain Management Issues No change(2020 1:36 PM EDT) No Sisi Christensen, KAREEM Note: Barriers: Access to Medications documented as of this encounter Visit Diagnoses Not on filedocumented in this encounter Additional Health Concerns Active Problems Noted Date Diagnosed Date Chronic Pain/Pain Management Issues 10/24/2019 Infection Onset Date Last Indicated Resolved Time CoV-Presumed 07/05/2021 07/05/2021 07/20/2021 3:53 PM EST CoV-Presumed 07/18/2022 07/18/2022 08/08/2022 1:23 AM EST Assessment Noted Time PHQ-9 Depression Total Score: 8 11/30/19 18 1:21 PM EDT PHQ-2 Depression Total Score: 2 03/15/20 21 12:41 PM EDT documented as of this encounter Care Teams Photogrammetrist Relationship Specialty Start Date End Date Joellen Green DO 3 Kelsea Dasilva [facility] [place] [address] [email or web address] PCP - General Family Medicine 06/01/20 06/11/22 Pcp, Unknown PCP - General 06/12/22 07/17/22 Joellen Green DO [address] [place] [address] [email or web address] PCP - General Family Medicine 07/18/22 11/07/22 Joellen Green DO 3 Kelsea Dasilva [address] [place] [address] [email or web address] PCP - General Family Medicine 11/08/22 05/14/23 Donal Falk MD 3 Kelsea Dasilva [address] [place] [address] PCP - General Family Medicine 05/15/23 Lucila Madrid RN [address] [place] [address] [email or web address] Registered Nurse 03/20/17 Ghanshyam Kc, KAREEM 3 Kelsea Dasilva [address] [place] [address] [email or web address] TMP Smoke Room Operator 03/29/21 08/03/21 Nieves Werner MD [address] [place] [address] Cardiology 05/30/21 Bonny Saenz RN [address] [place] [address] TMP Smoke Room Operator 08/04/21 05/11/22 Joellen Green DO 3 Kelsea Dasilva [address] [place] [address] [email or web address] Insurance Assigned Provider 10/02/20 09/30/22 documented as of this encounter Additional Source Comments The information contained in this document represents components of the legal health record. It is not the complete legal health record.[facility]
--- OUTSIDE RECORDS SUMMARY | 2025-05-25 16:43 | XMS_ITS ---
Care Plan Created on: May 25, 2025 MunozDanielle : 1960 Sex: Female Author Organization [facility] Address [address] [facility] [address] [place] [address] Phone Care Team Providers Care Cement Crusher Operator Name Role Phone Lucila Madrid RN Unavailable [phone] Nieves Werner MD Unavailable [phone] Donal Falk MD Primary Care Pr ovider Active Problems Patient Care Coordination No te [...] She is very connected to a local mandaen. Her sister had been a support in the past but hasn't been lately. Goals of Care (HCP/MOLST): Pt states that Healthcare proxy is her niece, Cristina Mcallister, . No HCP on file. Will complete at next PCP appt. Community Supports( e.g. VNA, DME Vendors, Elder Services): Know to [facility] Transportation: Pt drives herself to appointments. Medication Management System/Specialized Pharmacy Needs: Patient uses [facility] in [place]. Organizes meds using weekly pill box. Financial Concerns: Patient lives off of social security/disability. She does have [employer] making. Reports she has had high medication co-pays in the past, has since been enrolled in a program for the [employer]. Patient encouraged to alert care mgmt if [...] Infusions in past Gets endoscopy, colonoscopy at [facility]; has Keenan's Esophagus Followed by Endocrine, Heme/Onc, [...] Assessment & Plan (01/09/2022 10:31 AM EDT): Vault Cashier Tristian Naik in [place] - pain specialist Dr. Barrett Arnold does [...] stop breathing multiple times Sleep study at [facility] many 10+ years ago, but every mask she would try would wake her up due to masks blowing into her eyes Shared a room with her house mate when in [place] - told her that she stopped breathing [...] Plan (03/17/2021 9:57 PM EDT): Last EGD 2019 Patient due for surveillance EGD as well as screening colonoscopy Same physician did both previously at [facility] She will call to schedule both of [...] - takes MTX Patient will follow with [facility] rheum until able to find someone in [...] fiber to avoid constipation Call GI at [place] to schedule upper and lower endoscopy due to anemia - this month If difficulty scheduling I can refer her to [facility] Follow hematology Mixed stress and urge urinary incontinence 07/02 Assessment & Plan (07/23/2019 10:37 AM EST): Advised appt with uro custom feed mill operator. Pt is very resistant. Will continue to discuss. Assessment & Plan (07/02/2018 2:13 PM EST): Increased urinary incontinence, delicia with stress but sometimes random. Can happen when heard water running or just very full bladder. Long standing problem but worse in last few months. Wears adult diapers. Also not new for her. Refuses pelvic floor PT. Resistant to seeing uro custom feed mill operator, but agrees to go in the spring. [...] Assessment & Plan (05/24/2016 10:36 AM EST): [place] thyroid expensive- $40 for both 30 and [...] Will tell me if she re-considers. Colonoscopy: [facility] fall 2020 - colonoscopy and EGD done. She will get me these records. DEXA: [id number] was normal. Diabetic eye exam: Annually, Dr. Wise in [place] - she will ask them to send records of this year's exam. Dentist: [facility] Derm: TBSE done today. Sun protection advised Vaccines: Discussed vaccines for which she is due. Will consider - can obtain at pharmacy A minimum of eight minutes was spent on the administering and review of the results of the PHQ-9 today. Score of 11. Assessment & Plan (03/15/2021 3:22 PM EDT): Mammogram: 05/2018 BIRADS-1. Goes to [facility] - encouraged to schedule this. Paternal aunts with breast cancer. PAP: NILM HPV neg 10/2016 Colonoscopy: [facility], was told to return in 10 years - will work to obtain records DEXA: Will schedule Diabetic eye exam: Goes annually, Dr. Wise in [place] ([facility]) Dentist: MAG Derm: TBSE, will refer - [...] EDT): The 10-year ASCVD risk score (Erika DC Jr., et al., 2013) is: 5.3% Values [...] and Ozempic has to go through [facility] so there are some NovoLog and I [...] PM EDT): Patient has officially re-located to [facility] She will keep me as a primary until she is able to establish care with someone locally Will utilize Pending sale to [facility] for medication management of diabetes as well, but would like to start looking for a local compliance nurse Referral placed Patient due for eye exam Assessment & Plan (06/30/2021 9:57 AM EST): Diabetic eye exam done in [place] Goes annually, last exam 11/2020 Will call [...] Aware she probably will need 5 mg intermodal customer service. Will take in the morning. Assessment & [...] years Fibromyalgia OA Has pain specialist in [place] Baclofen nightly Tramadol Does not like being on so many medications Interested in THC/CBD Will speak with [facility] Continue exercise as tolerated, meditation, low-inflammatory dietary [...] check cmp. Has pain management doc in [place] but only seeing [facility] lately. Has few options given allergies. discussed [...] she is aware this is not ok half-way due to GI and kidney and BP [...] high activity due to wedding (in wedding [place] party) and travel. Tries to only take morphine at bedtime, but recently had to take bid dose and got very constipated. Now resolving with some diarrhea. No acute pain or tenderness. Still following with pmr pain sepc in [place] q 6 months. Insomnia 02/04/2013 Overview (08/15/2014): Insomnia Assessment & Plan (04/19/2017 10:59 AM EDT): Gained 13 lbs. In last few months. Eating oatmeal for breakfast. Walnuts and sugar free syrup. 2 small bagels a day- not different for her. With butter and stevia And cinnamon. Not much protein. Some chicken. Yogurt for dinner- fruit with korean yogurt. Little fruit. No veggies. - bothers [...] Plugged in with [employer] Involved in her mandaen Not suicidal On Prozac Saw her cardiac specialist last week, happy with her progress - considering thoracic MRI Sees therapist once per month Encouraged at looking at [facility] Continue Prozac, therapy Reach out to [...] score 12. Working with therapist. From her mandaen. Good fit. Taking 20 mg prozac and [...] not been able to get Ozempic through [facility]. Furthermore she cannot afford to pay for [...] During this visit the patient called the [facility] and apparently the Ozempic was already shipped. Also I discussed with medical orderly and we need to do new paperwork/prescription for NovoLog. Which is being done today. Type 2 diabetes mellitus wit h diabetic mononeuropathy, with long-term current use of insulin 11/29/2023 09/25/2024 Assessment & Plan (06/05/2024 11:49 AM EST): Fair control GMI 7.4% but she needs to have 70% in target range. I suggested increasing Ozempic to 2 mg. This has to go through [facility] because she is getting assistance. I sent [...] or new chest pain Pending enrollment into [facility] long-covid program Working on packing up her [...] at home test 07/05/21 Monoclonal antibodies at [facility] later that week Initially felt like she [...] follow with cardiology - echo pending Referral [facility] post COVID recovery program Acute pain of left shoulder 06/30/2021 01/09/2022 Assessment & Plan (06/30/2021 9:43 AM EST): Acute on chronic pain Trying to organize yariel ornaments in a box Repetitive motion of lifting and placing down Last week had intense pain around the deltoid and shoulder area [place] like a big knot, shooting pain up [...] her coordinate this. Order placed. Planning for [facility] HCP form - she has this at [...] reproduce the pain with palpation When on Lyrica previously, saw a small engine technician (this was years ago) did a stress test, echo Saw small engine technician in [place] in 2019 but none currently During these [...] financial oversight Had assistance with meals and BATCHER OPERATOR, hospice Patient has her sister, mandaen friends and support Hard time sleeping in [...] week changed three medications all at once. [place] thyroid to levothyroxine Simvastatin to atorvastatin And [...] in 1-2 weeks and we will make intermodal customer service plan. Cough 07/23/2019 03/15/2021 Assessment & Plan [...] EST): 07/26/18, fell at home. 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 Seen at [facility]. Humerus fracture in two places. Followed by [...] Meets regularly with pain management doc in [place]. He agrees this is the best ongoing [...] Plan (11/26/2018 7:57 PM EDT): Fall at mandaen about 3 weeks ago. Tripped on bricks. [...] as few weeks ago. Had to leave mandaen this past Sunday due to over stimulation [...] AM EDT): Saw cardiology- [facility] [place] last week. Dr. Guerin. [phone] Scheduled echo, stress test and 30 day [...] last. Elderly father has to take to appts so requests cardio she knows in [place]- agreed, though urged her to consider [facility] if possible. Foreign body in right foot 08/02/2016 0 08/21/2017 Assessment & Plan (08/03/2016 11:46 AM EST): Small calloused FB in middle of right heel. No signs surrounding irritation or infection. No end or edge palpable for removal. Refer to podaitry for assessment and possible removal. Additional Health Concerns Active Problems Noted Date Diagnosed Date Chronic Pain/Pain Management Issues 10/24/2019 Goals Goal Patient Goal Type Associated Problems Recent Progress Patient-Stated? Author Reduce and/or manage chronic pain Care Plan Chronic Pain/Pain Management Issues No change(2020 1:36 PM EDT) No Sisi Christensen, RN Note: Barriers: Access to Medications Interventions Care Plan Interventions Intervention Entry Date Outcome Education on self-management techniques and treatment options 10/24/2019 Related Goals and Interventions Goal Associated Intervent ions Reduce and/or manage chronic pain Educat ion on self-management techniques and treatment options
--- OUTSIDE RECORDS SUMMARY | 2025-05-25 16:44 | XMS_ITS | Encounter Summary ---
Author Organization [facility] Address [address] [place] [address] Phone Care Team Providers Care Stack Matcher Name Role Phone Lucila Madrid RN Unavailable [phone] Joellen Green DO Primary Care Provider Ghanshyam Kc RN Unavailable [email or web address] Nieves Werner MD Unavailable [phone] Bonny Saenz RN Unavailable [email or web address] Pcp, Unknown Primary Care Provider Unavailabl e Joellen Green DO Primary Care Provider [phone] Joellen Green DO Unavailable [phone] Joellen Green DO Primary Care Provider [phone] Donal Falk MD Primary Care Pr ovider Encounter Details Date Type Department Care Team (Late st Contact Info) Description 07/20/2021 Ancillary Orders [facility] [address] [place] [address] Joellen Green DO [address] [place], [place] [phone] [email or web address] Health care maintenance Social History Tobacco Use Types Packs/Day Years [...] 12:10 PM EST Office Visit [facility] [address] [place] [address] Mainor Cody DO [address] [place] [address] [email or web address] documented as of this encounter Goals Goal Patient Goal Type Associated Problems Recent Progress Patient-Stated? Author Reduce and/or manage chronic pain Care Plan Chronic Pain/Pain Management Issues No change(2020 1:36 PM EDT) No Sisi Christensen, RN Note: Barriers: Access to Medications documented as of this encounter Results * (ABNORMAL) BI MAMMOGRAM SCREENING WITH TOMOSYNTHESIS WITH CAD (BILATERAL) (09/12/2021 2:20 PM EDT) Anatomical Region Laterality Modality Breast Left, Breast Right, Breast Bilateral Bila teral Mammography 09/12/2021 2:24 PM EDT Addenda Addendum by Patty Bond MD on 09/21/2021 5:36 PM EDT ADDENDUM: Previous mammograms performed at outside institution 09/17/2015, 06/07/2017 and 06/11/2018 are now available for comparison. The questioned focal asymmetry in the left central inner breast is not definitively seen on prior studies. Additional imaging is recommended. No significant new abnormality is detected in the right breast. Left Breast: Left Assessment: BI-RADS 0 Incomplete. Need additional imaging evaluation. Questionable focal asymmetry. Left Recommendation: Left Additional Imaging with diagnostic mammogram and possible limited ultrasound. Left Recommendation Due Date: To Be Scheduled Right Breast: Right Assessment: BI-RADS 1 Negative. Negative, no mammographic evidence of malignancy. Right Recommendation: Right Mammography Screening Right Recommendation Due Date: 12 Months OVERALL Assessment: BI-RADS 0 Incomplete. Need additional imaging evaluation. Schedulers from our department will be contacting patients during business hours to arrange for further imaging. Recommend additional imaging. The patient was sent a letter with the results of the exam and follow-up recommendation, and will be called by telephone to arrange for the additional work-up recommended. The recommendation above has been entered into a reminder system to monitor and facilitate patient compliance Impressions 09/12/2021 2:29 PM EDT Left Breast: Left Assessment: BI-RADS 0F Incomplete. Need Prior Imaging. Questionable focal asymmetry. Left Recommendation: Comparison with prior breast imaging. If priors are not available within 2 weeks for comparison, then recommend further evaluation with diagnostic mammogram and possible limited ultrasound. Left Recommendation Due Date: To Be Scheduled Right Breast: Right Assessment: BI-RADS 1 Negative. Negative, no mammographic evidence of malignancy. Right Recommendation: Right Mammography Screening Right Recommendation Due Date: 12 Months OVERALL Assessment: BI-RADS 0F Incomplete. Need Prior Imaging. Schedulers from our department will be contacting patients during business hours to arrange for further imaging. Recommend additional imaging. The patient was sent a letter with the results of the exam and follow-up recommendation, and will be called by telephone to arrange for the additional work-up recommended. The recommendation above has been entered into a reminder system to monitor and facilitate patient compliance Narrative 09/12/2021 2:29 PM EDT Reason for exam: Screening. No new breast complaints. TECHNIQUE: Digital Mammography and tomosynthesis were used to obtain images. Computer Aided Detection was used to aid in interpretation. COMPARISON: No prior mammograms are available for comparison at the time of dictation. BREAST DENSITY: There are scattered areas of fibroglandular density FINDINGS: Left Breast: A questionable focal asymmetry is present projecting in the central inner breast at middle depth (MLO 35/73 and CC 27/75 Right Breast: No significant masses, suspicious calcifications, or other abnormalities are seen. us Joellen Green DO IMG MG EXAMS Edited Resu lt - Final documented in this encounter Visit Diagnoses Diagnosis Health [facility] maintenance Health care maintenance documented in this encounter Additional Health Concerns [...] documented as of this encounter Care Teams Stack Matcher Relationship Specialty Start Date End Date Joellen Green DO [address] [place] [address] [email or web address] PCP - General Family Medicine 06/01/20 06/11/22 Pcp, Unknown PCP - General 06/12/22 07/17/22 Joellen Green DO [address] [place] [address] [email or web address] PCP - General Family Medicine 07/18/22 11/07/22 Joellen Green DO [address] [place] [address] [email or web address] PCP - General Family Medicine 11/08/22 05/14/23 Donal Falk MD [address] [place] [address] PCP - General Family Medicine 05/15/23 Lucila Madrid RN [address] [place] [address] [email or web address] Registered Nurse 03/20/17 Ghanshyam KcKAREEM [address] [place] [address] [email or web address] [employer] Author 03/29/21 08/03/21 Nieves Werner MD [address] [place] [address] [email or web address] Cardiology 05/30/21 Bonny Saenz RN [address] [place] [address] [email or web address] [employer] Author 08/04/21 05/11/22 Joellen Green DO [address] Dasilva [address] [place] [address] [email or web address] Insurance Assigned Provider 10/02/20 09/30/22 documented as of this encounter Additional Source Comments The information contained in this document represents components of the legal health record. It is not the complete legal health record.[facility]
--- OUTSIDE RECORDS SUMMARY | 2025-05-25 16:44 | XMS_ITS | Encounter Summary ---
Author Organization [facility] Address [address] [place] [address] Phone Care Team Providers Care Outreach Consultant Name Role Phone Lucila Madrid RN Unavailable [phone] Joellen Green DO Primary Care Provider Nieves Werner MD Unavailable [phone] Bonny Saenz RN Unavailable [email or web address] Pcp, Unknown Primary Care Provider Unavailabl e Joellen Green DO Primary Care Provider [phone] Joellen Green DO Unavailable [phone] Joellen Green DO Primary Care Provider Donal Falk MD Primary Care Pr ovider Encounter Details Date Type Department Care Team (Late st Contact Info) Description 09/22/2021 Procedure Pass [facility]- Breast Imaging, [facility] [address] [place] [address] Social History Tobacco Use Types Packs/Day Years [...] 12:10 PM EST Office Visit [facility] [place] [address] Mainor Cody DO [address] [place] [address] [email or web address] documented as of this encounter Goals Goal [...] documented as of this encounter Care Teams Outreach Consultant Relationship Specialty Start Date End Date Joellen Green DO [address] [place] [address] PCP - General Family Medicine 06/01/20 06/11/22 Pcp, Unknown PCP - General 06/12/22 07/17/22 Joellen Green DO [address] [place] [address] PCP - General Family Medicine 07/18/22 11/07/22 Joellen Green DO [address] Das[address]va [address] [place] [address] [email or web address] PCP - General Family Medicine 11/08/22 05/14/23 Donal Falk MD [address] [place] [address] PCP - General Family Medicine 05/15/23 Lucila Madrid RN [address] [place] [address] [email or web address] Registered Nurse 03/20/17 Nieves Werner MD [address] [place] [address] Cardiology 05/30/21 Bonny Saenz, KAREEM [address] [place] [address] [facility] Respiratory Support Technician 08/04/21 05/11/22 Joellen Green DO [address] [place] [address] [email or web address] Insurance Assigned Provider 10/02/20 09/30/22 documented as of this encounter Additional Source Comments The information contained in this document represents components of the legal health record. It is not the complete legal health record.[facility]
--- OUTSIDE RECORDS SUMMARY | 2025-05-25 16:44 | XMS_ITS | Encounter Summary ---
Author Organization [facility] Address [address] [place] [address] Care Team Providers Care Space And Storage Clerk Name Role Phone Donal Falk MD Primary Care Pr ovider Encounter Details Date Type Department Care Team (Late st Contact Info) Description 04/07/2025 Results Follow-Up Adult Medicine [address] [phone] Donal Falk MD [address] [place], [place] Social History Tobacco Use Types Packs/Day Years Used Date Smoking Tobacco: Never Smokeless Tobacco: Never Alcohol Use Standard Drinks/Week Comments Never 0 (1 standard drink = 0.6 oz pur e alcohol) Housing Instability Answer Date Recorde d Are you worried that in the next 2 months you may not have stable housing? No 05/14/2024 Food Access & Nutrition Answer Date Rec orded Do you have access to a vari ety of food including fruits and vegetables? Yes 05/14/2024 Access to Healthcare Answer Date Record ed Within the last 3 months, ho w many times did you visit the emergency department for your medical care? 1 05/14/2024 Health Literacy Answer Date Recorded How often do you need to hav e someone help you when you read instructions, pamphlets, or other written material from your doctor or pharmacy? Never 05/14/2024 Caregiver: How often do you need to have someone help you when you read instructions, pamphlets, or other written material from your doctor or pharmacy? Not on file 05/14/2024 Financial Risk Answer Date Recorded How hard is it for you to pa y for the very basics like food, housing, medical care, and air conditioning / heating? Somewhat hard 05/14/2024 Transportation Answer Date Recorded Has the lack of transportati on kept you from meetings, work, or from getting things needed for daily living? No Has the lack of transportati on kept you from medical appointments or from getting medications? No 05/14/2024 Social Isolation Answer Date Recorded How often do you feel lonely or isolated from those around you? Sometimes 05/14/2024 Food Risk Answer Date Recorded Within the past 12 months we worried whether our food would run out before we got money to buy more. Never true 05/14/2024 Within the past 12 months th e food we bought just didn't last and we didn't have money to get more. Never true 05/14/2024 Dependent Care Answer Date Recorded Do you need help finding or paying for care for your loved ones. For example, child support officer or elderly care for an older adult? No 05/14/2024 Education Answer Date Recorded Do you think completing more education or training, like finishing a GED, going to college, or learning a trade, would be helpful for you? No 05/14/2024 Employment and Income Answer Date Recor ded During the last four weeks, have you been actively looking for work? No 05/14/2024 Living Situation Answer Date Recorded What is your living situation? Unrecognized valu e 05/14/2024 Interpersonal Safety Answer Date Record ed Physical Abuse Unrecognized value 12/13/2024 Verbal Abuse Unrecognized value 12/13/2024 Comments No Sex and Gender Information Value Date Recorded Sex Assigned at Female 10/06/2024 10:52 AM EDT Legal Sex Female 8:08 PM EST Gender Identity Female 10/06/2024 10:52 AM EDT Sexual Orientation Straight 10/06/2024 10 :52 AM EDT documented as of this encounter Ordered Prescriptions Prescription Sig Dispense Quantity Refills Last Filled Start Date End Date rosuvastatin (CRESTOR) 5 mg tabletIndications:Mi xed hyperlipidemia Take 2 tablets (10 mg total) by mouth at bedtime. 180 each 1 04/08/2025 documented in this encounter Plan of Treatment Upcoming Encounters Date Type Department Care Team (Late st Contact Info) Description 06/02/2025 1:00 PM EST Office Visit Orthopedic Surgery - [place] [address] [facility] [address] [place] [phone] Tristian Sibley, DPM [address] [phone] 06/03/2025 2:30 PM EST Consult [facility] [address] [place] [phone] Sylvia Stroud MD [address] [place] [phone] 07/08/2025 1:30 PM EST Office Visit Adult Medicine [facility] [address] [place], [place] [phone] Donal Falk MD [address] [place] [address] Scheduled Orders Name Type Priority Associated Diagnoses Orde r Schedule Lipid panel with reflex to direct LDL Lab Routine Mixed hyperlipidemia Expected: 07/09/2025, Expires: 04/08/2026 Comprehensive metabolic panel Lab Routine Mixed hyperlipidemia Expected: 07/09/2025, Expires: 04/08/2026 documented as of this encounter Goals Goal Patient Goal Type Associated Problems Recent Progress Patient-Stated? Author STG 4 visits General Yes Liban Munoz, PT Note: Pt will be independent in HEP to manage chronic dizziness. documented as of this encounter Visit Diagnoses Diagnosis Mixed hyperlipidemia- Primary documented in this encounter Discontinued Medications Medication Sig Discontinue Reason Start Date End Da te rosuvastatin (CRESTOR) 5 mg tabletIndications:Mixed hyperlipidemia Take 1 tablet (5 mg total) by mouth 1 (one) time each day. Reorder 03/25/2025 04/08/2025 documented as of this encounter Additional Health Concerns Assessment Noted Time PHQ-9 Depression Total Score: 12 025 11:22 AM EDT documented as of this encounter Care Teams Space And Storage Clerk Relationship Specialty Start Date End Date Donal Falk MD [address] [place] [phone] PCP - General 11/14/22 documented as of this encounter
--- OUTSIDE RECORDS SUMMARY | 2025-05-25 16:44 | XMS_ITS | Encounter Summary ---
Author Organization [facility] Address [address] [place] [address] Phone Care Team Providers Care Color Weigher Name Role Phone Baylee Guerrero DO Primary Care Provider [phone] Baylee Guerrero DO Unavailable [phone] Cristina Block MD Unavailable Lucila Madrid RN Unavailable [phone] Sisi Christensen RN Unavailable [phone] Joellen Green DO Primary Care Provider [phone] Ghanshyam Kc RN Unavailable [email or web address] Nieves Werner MD Unavailable [phone] Bonny Saenz RN Unavailable [email or web address] Pcp, Unknown Primary Care Provider Unavailabl e Joellen Green DO Primary Care Provider [phone] Joellen Green DO Unavailable [phone] Joellen Green DO Primary Care Provider [phone] Donal Falk MD Primary Care Pr ovider Encounter Details Date Type Department Care Team (Late st Contact Info) Description 05/13/2020 Procedure Pass [facility] - [facility] [address] [place] [address] Social History Tobacco Use Types Packs/Day Years Used Date Smoking Tobacco: Never Smokeless Tobacco: Never Alcohol Use Standard Drinks/Week Comments No 0 (1 standard drink = 0.6 oz pur e alcohol) Comments Unknown Sex and Gender Information Value Date Recorded [...] 12:10 PM EST Office Visit [facility] [address] [place] [address] Mainor Cody DO [address] [place] [address] [email or web address] documented as of this encounter Goals [...] PM EDT PHQ-2 Depression Total Score: 2 02/16/20 20 10:18 AM EDT documented as of this encounter Care Teams Color Weigher Relationship Specialty Start Date End Date Baylee Guerrero DO [email or web address] PCP - General 08/22/14 05/31/20 Joellen Green DO [address] Das[address]va [address] [place] [address] [email or web address] PCP - General Family Medicine 06/01/20 06/11/22 Pcp, Unknown PCP - General 06/12/22 07/17/22 Joellen Green DO [address] Dasilva [facility] [place] [address] [email or web address] PCP - General Family Medicine 07/18/22 11/07/22 Joellen Green DO [address]va [address] [place] [address] [email or web address] PCP - General Family Medicine 11/08/22 05/14/23 Donal Falk MD [address]va [address] [place] [address] PCP - General Family Medicine 05/15/23 Baylee Guerrero DO [address] [place] [address] [email or web address] Insurance Assigned Provider 12/26/15 10/02/20 Cristina Block MD [address] [place] [address] [email or web address] Historical LMR Provider 01/07/17 07/02/21 Lucila Madrid RN [address] [place] [address] [email or web address] Registered Nurse 03/20/17 Sisi Christensen, KAREEM [address] [place] [address] [email or web address] TMP Wire Spring Relay Adjuster 08/29/19 03/29/21 Ghanshyam Kc, KAREEM [address] [place] [address] [email or web address] TMP Wire Spring Relay Adjuster 03/29/21 08/03/21 Nieves Werner MD [address] [place] [address] [email or web address] Cardiology 05/30/21 Bonny Saenz RN [address] [place] [address] [email or web address] TMP Wire Spring Relay Adjuster 08/04/21 05/11/22 Joellen Green DO [address] [place] [address] [email or web address] Insurance Assigned Provider 10/02/20 09/30/22 documented as of this encounter Additional Source Comments The information contained in this document represents components of the legal health record. It is not the complete legal health record.[facility]
--- OUTSIDE RECORDS SUMMARY | 2025-05-25 16:44 | XMS_ITS | Clinical Summary ---
Author Organization [facility] Address [address] [place] [address] Phone Care Team Providers Care Clerk Travel Reservations Name Role Phone Donal Falk MD Primary Care Pr ovider Allergies Active Allergy Reactions Criticality Noted Date Comments Aspirin Other High 05/02/2023 tinitis Codeine Nausea And Vomiting,Fainting 05/02/2023 Duloxetine Hcl Other 05/02/2023 tinitis Erythromycin-Sulfisoxaz ole Rash 10/30/2024 Ethyl Alcohol Swelling 07/31/2024 Fentanyl Hives 05/02/2023 Gabapentin Swelling High 10/30/2024 Hydrocodone Hives 05/02/2023 Iodinated Contrast Media Hives,Itching,Rash High 07/31/2024 Latex Hives,Swelling 05/02/2023 Methocarbamol GI intolerance High 05/02/2023 Morphine Itching Low 05/02/2023 Sensative not allergic-can take as long as given vistaril Onion GI intolerance 07/31/2024 Oxycodone Hives 05/02/2023 Pregabalin Swelling High 05/02/2023 Sertraline Tinnitus 10/30/2024 Tramadol Other Low 05/02/2023 Increase heart rate Sensitive not allergic Medications methotrexate 2.5 mg tablet Take 10 Tablets by mouth once a week. Active metFORMIN (GLUCOPHAGE) 1,000 mg tablet Take 1 tablet (1,000 mg total) by mouth 2 (two) times a day with meals. 10/12/19 24 Active pen needle, diabetic (BD Ultra-Fine Christine Pen Needle) 32 gauge x 5/32 needle Use 4 times daily with victoza 09/05/19 24 Active insulin glargine (Lantus Solostar U-100 Insulin) 100 unit/mL (3 mL) injection pen 22 Units 1 (one) time each day in the morning. 09/05/19 24 Active medical supply, miscellaneous (MISCELLANEOUS MEDICAL SUPPLY [facility] Apply 1 Strip topically 2 times daily. 08/28/19 24 Active blood-glucose transmitter (DEXCOM G6 TRANSMITTER [facility] by Does not apply route. Active leucovorin 10 mg tablet TAKE 1 TABLET BY MOUTH ONCE A WEEK 03/22/20 23 Active semaglutide (Ozempic) 1 mg/dose (4 mg/3 mL) injection pen Inject 1 mL into the skin once a week. Active lidocaine (LIDODERM) 5 % patch Place 1 Patch onto the skin every 24 hours. Apply for no more than 12 hours in any 24 hour period. Active blood-glucose meter,continuous (Dexcom G7 Pecan Gatherer) miscIndications:Ty pe 2 diabetes mellitus with diabetic microalbuminuria, with long-term current use of insulin (CMS/HCC V24, CMS/HCC V28) by Other route once daily as needed. 03/04/20 24 Active insulin aspart (NovoLOG FlexPen) 100 unit/mL (3 mL) injection penIndications:Typ e 2 diabetes mellitus with diabetic microalbuminuria, with long-term current use of insulin (CMS/HCC V24, CMS/HCC V28) Inject up to 8 units TID with meals. Waste two units with each dose per manufacturers instruction. 08/18/19 23 Active albuterol HFA (PROAIR HFA ; PROVENTIL HFA ; VENTOLIN HFA) 90 mcg/actuation inhalerIndications :Bronchitis Inhale 1 puff by mouth every 6 (six) hours if needed for shortness of breath or wheezing (cough). for wheezing 18 g 1 05/21/20 24 Active baclofen (LIORESAL) 10 mg tabletIndications: Chronic pain syndrome,Cervical radiculopathy,Fibr omyalgia Take 1 tablet (10 mg total) by mouth 1 (one) time each day if needed for muscle spasms. DO NOT USE WITH TIZANIDINE 30 tablet 1 09/27/19 25 Active meclizine (ANTIVERT) 25 mg tabletIndications: Chronic vertigo Take 1 tablet (25 mg total) by mouth 3 (three) times a day if needed for dizziness. 270 tablet 1 09/27/19 25 Active inFLIXimab (REMICADE/UNBRANDE D) 100 mg injection Infuse into a venous catheter every 30 (thirty) days. Active tiZANidine (ZANAFLEX) 2 mg tabletIndications: Chronic pain syndrome,Cervical radiculopathy,Fibr omyalgia Take 1 tablet (2 mg total) by mouth 1 (one) time each day if needed for muscle spasms. 90 tablet 02/07/20 25 Active FLUoxetine (PROzac) 20 mg capsuleIndications :Moderate episode of recurrent major depressive disorder (CMS/HCC V24, CMS/HCC V28) Take 1 capsule (20 mg total) by mouth 1 (one) time each day. 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 90 tablet 1 03/25/20 25 026 Active pramipexole (MIRAPEX) 0.5 mg tabletIndications: Restless leg syndrome Take 1 tablet (0.5 mg total) by mouth at bedtime. 90 each 1 03/25/20 25 026 Active nortriptyline (PAMELOR) 25 mg capsuleIndications :Moderate episode of recurrent major depressive disorder (CMS/HCC V24, CMS/HCC V28) Take 1 capsule (25 mg total) by mouth at bedtime. 90 each 1 03/25/20 25 026 Active clindamycin (CLEOCIN T) 1 % gelIndications:Danna ast nodule Apply to breast lesion twice a day 60 g 5 03/25/20 25 026 Active famotidine (PEPCID) 40 mg tabletIndications: Keenan's esophagus determined by endoscopy Take 1 tablet (40 mg total) by mouth 1 (one) time each day. 90 each 1 03/25/20 25 026 Active nystatin (MYCOSTATIN) creamIndications:I ntertrigo Apply topically 1 (one) time each day if needed (intertrigo). 30 g 1 03/25/20 Active rosuvastatin (CRESTOR) 5 mg tabletIndications: Mixed hyperlipidemia Take 2 tablets (10 mg total) by mouth at bedtime. 180 each 1 04/08/20 25 Active omeprazole (PriLOSEC) [address] capsule Take 1 capsule (40 mg total) by mouth 1 (one) time each day before breakfast. Do not crush or chew. 90 each 3 04/10/20 25 026 Active Active Problems Problem Noted Date Diagnosed Date Hepatic steatosis 10/13/2024 Assessment & Plan (10/13/2024 12:14 PM EDT): Orders: Comprehensive metabolic panel; Future Obstructive sleep apnea syndrome 05/21/2024 Assessment & Plan (09/26/2024 4:52 PM EDT): Pending evaluation with sleep medicine next month Assessment & Plan (05/21/2024 5:46 PM EST): See HPI. Referred for repeat sleep study and to pulm and sleep med for treatment with CPAP Orders: Ambulatory referral to Sleep Medicine; Future Ambulatory referral to Pulmonology; Future CKD (chronic kidney disease) stage 2, GFR 60-89 ml/min 06/04/2023 Assessment & Plan (03/25/2025 1:27 PM EDT): Given her orthostatic dizziness, she is advised to stop the losartan 25 mg daily which could be contributory. Her blood pressure is already on the low end at 118/66. Advised to get up slowly with standing to prevent falls. Referred to get some physical therapy but she tells me she was not really able to complete sessions due to her chronic neck pain Assessment & Plan (09/26/2024 4:52 PM EDT): Continue losartan Orders: losartan (Cozaar) 25 mg tablet; Take 1 tablet (25 mg total) by mouth 1 (one) time each day. Assessment & Plan (05/21/2024 5:46 PM EST): Orders: losartan (Cozaar) 25 mg tablet; Take 1 tablet (25 mg total) by mouth 1 (one) time each day. Gallstones 06/04/2023 Assessment & Plan (10/13/2024 12:14 PM EDT): As above Assessment & Plan (05/21/2024 5:46 PM EST): F/u with Dr. Servin as scheduled in May Severe obesity (BMI 35.0-39. 9) with comorbidity (CMS/HCC V24, CMS/HCC V28) 06/04/2023 Hypothyroidism 05/31/2023 Assessment & Plan (03/25/2025 1:27 PM EDT): Continue levothyroxine. Last TSH was within normal range Orders: levothyroxine (SYNTHROID, LEVOTHROID) 75 mcg tablet; Take 1 tablet (75 mcg total) by mouth 1 (one) time each day before breakfast. Thyroid stimulating hormone with reflex to free t4 and free t3; Future Assessment & Plan (09/26/2024 4:52 PM EDT): Last TSH within normal limits. Continue levothyroxine Orders: Thyroid stimulating hormone with reflex to free t4 and free t3; Future levothyroxine (SYNTHROID, LEVOTHROID) 75 mcg tablet; Take 1 tablet (75 mcg total) by mouth 1 (one) time each day before breakfast. Assessment & Plan (05/21/2024 5:46 PM EST): Orders: levothyroxine (SYNTHROID, LEVOTHROID) 75 mcg tablet; Take 1 tablet (75 mcg total) by mouth 1 (one) time each day before breakfast. Thyroid peroxidase antibody; Future Keenan's esophagus determined by endoscopy 08/2022 Assessment & Plan (03/25/2025 1:27 PM EDT): Continue famotidine 40 mg and omeprazole 40 mg nightly Orders: famotidine (PEPCID) 40 mg tablet; Take 1 tablet (40 mg total) by mouth 1 (one) time each day. Assessment & Plan (09/26/2024 4:52 PM EDT): Recent endoscopy showed no evidence of Keenan's esophagus. She will continue omeprazole 40 mg daily. Following with GI Assessment & Plan (05/21/2024 5:46 PM EST): Orders: Ambulatory referral to Gastroenterology; Future Cervical radiculopathy 04/27/2023 Assessment & Plan (03/25/2025 1:27 PM EDT): Continue follow-up with family physiatry for periodic neck injections. Has appointment on Sunday Assessment & Plan (09/26/2024 4:52 PM EDT): As above. Continue follow-up with family physiatry Orders: tiZANidine (ZANAFLEX) 2 mg tablet; Take 1 tablet (2 mg total) by mouth 1 (one) time each day if needed for muscle spasms. baclofen (LIORESAL) 10 mg tablet; Take 1 tablet (10 mg total) by mouth 1 (one) time each day if needed for muscle spasms. DO NOT USE WITH TIZANIDINE Assessment & Plan (05/21/2024 5:46 PM EST): Continue follow up with physiatry Orders: tiZANidine (ZANAFLEX) 2 mg tablet; Take 1 tablet (2 mg total) by mouth 1 (one) time each day if needed for muscle spasms. baclofen (LIORESAL) 10 mg tablet; Take 1 tablet (10 mg total) by mouth 1 (one) time each day if needed for muscle spasms. DO NOT USE WITH TIZANIDINE Chronic pain syndrome 04/27/2023 Assessment & Plan (03/25/2025 1:27 PM EDT): Continue baclofen 10 mg daily as needed and tizanidine 2 mg daily as needed. She is aware that she is not to take both medications at the same time and she alternates them. Continue lidocaine patches as needed Assessment & Plan (09/26/2024 4:52 PM EDT): Advised that she can use the baclofen 10 mg daily and use the tizanidine only as needed to help with her chronic pain/back spasms. She is very much aware that she is not to use both tizanidine and baclofen at the same time. Orders: tiZANidine (ZANAFLEX) 2 mg tablet; Take 1 tablet (2 mg total) by mouth 1 (one) time each day if needed for muscle spasms. baclofen (LIORESAL) 10 mg tablet; Take 1 tablet (10 mg total) by mouth 1 (one) time each day if needed for muscle spasms. DO NOT USE WITH TIZANIDINE Assessment & Plan (05/21/2024 5:46 PM EST): Orders: tiZANidine (ZANAFLEX) 2 mg tablet; Take 1 tablet (2 mg total) by mouth 1 (one) time each day if needed for muscle spasms. baclofen (LIORESAL) 10 mg tablet; Take 1 tablet (10 mg total) by mouth 1 (one) time each day if needed for muscle spasms. DO NOT USE WITH TIZANIDINE Chronic vertigo 04/27/2023 Assessment & Plan (11/21/2024 1:02 PM EDT): As above Orders: Ambulatory referral to Physical Therapy and Athletic Training; Future MR Brain wo Contrast; Future Assessment & Plan (09/26/2024 4:52 PM EDT): Continue meclizine as needed Orders: meclizine (ANTIVERT) 25 mg tablet; Take 1 tablet (25 mg total) by mouth 3 (three) times a day if needed for dizziness. Assessment & Plan (05/21/2024 5:46 PM EST): Continue meclizine PRN Current moderate episode of major depressive disorder (CMS/HCC V24, CMS/HCC V28) 04/27/2023 Assessment & Plan (03/25/2025 1:27 PM EDT): Stable.continue current meds Orders: FLUoxetine (PROzac) 20 mg capsule; Take 1 capsule (20 mg total) by mouth 1 (one) time each day. nortriptyline (PAMELOR) 25 mg capsule; Take 1 capsule (25 mg total) by mouth at bedtime. Assessment & Plan (09/26/2024 4:52 PM EDT): Continue current meds Orders: nortriptyline (PAMELOR) 25 mg capsule; Take 1 capsule (25 mg total) by mouth at bedtime. FLUoxetine (PROzac) 20 mg capsule; Take 1 capsule (20 mg total) by mouth 1 (one) time each day. Assessment & Plan (05/21/2024 5:46 PM EST): Orders: FLUoxetine (PROzac) 20 mg capsule; Take 1 capsule (20 mg total) by mouth 1 (one) time each day. nortriptyline (PAMELOR) 25 mg capsule; Take 1 capsule (25 mg total) by mouth at bedtime. Fibromyalgia 04/27/2023 Assessment & Plan (03/25/2025 1:27 PM EDT): As above Assessment & Plan (09/26/2024 4:52 PM EDT): As above. Continue follow-up with family physiatry Orders: tiZANidine (ZANAFLEX) 2 mg tablet; Take 1 tablet (2 mg total) by mouth 1 (one) time each day if needed for muscle spasms. baclofen (LIORESAL) 10 mg tablet; Take 1 tablet (10 mg total) by mouth 1 (one) time each day if needed for muscle spasms. DO NOT USE WITH TIZANIDINE Assessment & Plan (05/21/2024 5:46 PM EST): Orders: tiZANidine (ZANAFLEX) 2 mg tablet; Take 1 tablet (2 mg total) by mouth 1 (one) time each day if needed for muscle spasms. baclofen (LIORESAL) 10 mg tablet; Take 1 tablet (10 mg total) by mouth 1 (one) time each day if needed for muscle spasms. DO NOT USE WITH TIZANIDINE Intertrigo 04/27/2023 Assessment & Plan (03/25/2025 1:27 PM EDT): Continue nystatin cream as needed Orders: nystatin (MYCOSTATIN) cream; Apply topically 1 (one) time each day if needed (intertrigo). Assessment & Plan (09/26/2024 4:52 PM EDT): Continue nystatin as needed Assessment & Plan (05/21/2024 5:46 PM EST): Continue nystatin PRN Irritable bowel syndrome wit h both constipation and diarrhea 04/27/2023 Assessment & Plan (10/13/2024 12:14 PM EDT): She will use imodium as needed and follow up with GI Assessment & Plan (05/21/2024 5:46 PM EST): Continue GI follow up and avoidance of food triggers Mixed hyperlipidemia 04/27/2023 Assessment & Plan (03/25/2025 1:27 PM EDT): Continue Crestor Orders: rosuvastatin (CRESTOR) 5 mg tablet; Take 1 tablet (5 mg total) by mouth 1 (one) time each day. Lipid panel with reflex to direct LDL; Future Assessment & Plan (09/26/2024 4:52 PM EDT): Last LDL is close to goal of 70. For now, continue Crestor at the current dose Orders: rosuvastatin (CRESTOR) 5 mg tablet; Take 1 tablet (5 mg total) by mouth at bedtime. Assessment & Plan (05/21/2024 5:46 PM EST): Orders: Lipid panel with reflex to direct LDL; Future rosuvastatin (CRESTOR) 5 mg tablet; Take 1 tablet (5 mg total) by mouth at bedtime. Restless leg syndrome 04/27/2023 Assessment & Plan (03/25/2025 1:27 PM EDT): Continue pramipexole Orders: pramipexole (MIRAPEX) 0.5 mg tablet; Take 1 tablet (0.5 mg total) by mouth at bedtime. Assessment & Plan (09/26/2024 4:52 PM EDT): Continue pramipexole Orders: pramipexole (MIRAPEX) 0.5 mg tablet; Take 1 tablet (0.5 mg total) by mouth at bedtime. Assessment & Plan (05/21/2024 5:46 PM EST): Orders: pramipexole (MIRAPEX) 0.5 mg tablet; Take 1 tablet (0.5 mg total) by mouth 1 (one) time each day. Rheumatoid arthritis ([facility] V24, [facility] V28) 04/27/2023 Assessment & Plan (09/26/2024 4:52 PM EDT): Continue follow-up with rheumatology. Continue methotrexate and Remicade Assessment & Plan (05/21/2024 5:46 PM EST): Continue methotrexate 25mg weekly and remicade infusion once a month. Ran out of leucovorin about 2 months ago. Has appt with Dr. Strange next month Type II diabetes mellitus wi th renal manifestations ([facility] V24, [facility] V28) 04/27/2023 Assessment & Plan (03/25/2025 1:27 PM EDT): Last A1c was 6.4 in December follows [address] Dr. Cody. Continue Ozempic 1mg weekly , insulin lantus 22 U QAM, inuslin novolog sliding scale, metformin 1000mg BID. Orders: Hemoglobin A1c; Future Assessment & Plan (09/26/2024 4:52 PM EDT): Continue endocrinology follow-up. Recently seen by her food service ambassador yesterday. For now she will continue the increased dose of Lantus at 60 units every morning until she gets Ozempic which has been on backorder for the past 3 months. Continue insulin sliding scale and metformin 1000 mg twice daily. Continue losartan, no microalbuminuria on recent urine test Orders: losartan (Cozaar) 25 mg tablet; Take 1 tablet (25 mg total) by mouth 1 (one) time each day. Assessment & Plan (05/21/2024 5:46 PM EST): continue ozempic 1mg weekly, insulin lantus 22 U QAM, inuslin novolog sliding scale, metformin 1000mg BID. Continue follow up with Endocrinology at [facility] Orders: Hemoglobin A1c; Future Microalbumin creatinine urine ratio; Future losartan (Cozaar) 25 mg tablet; Take 1 tablet (25 mg total) by mouth 1 (one) time each day. 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 Denies RUQ pain Saw Dr. Servin in February 2024, and she chose watchful waiting for the gallstones. She will let me know if she changes her mind Acquired hypothyroidism 04/27/202304/26 Encounters Date Type Department Care Team Description 04/07/2025 Results Follow-Up [address] [phone] Donal Falk MD 04/06/2025 1:38 PM EDT - 04/06/2025 11:59 PM EDT Hospital Encounter Radiology Department [address] [phone] Breast nodule; Breast pain, left; Disorder of breast, unspecified; Benign neoplasm of left breast Discharge Disposition: Home or Self Care 03/25/2025 12:30 PM EDT Office Visit [address] [phone] Donal Falk MD Type 2 diabetes mellitus with stage 2 chronic kidney disease, with long-term current use of insulin ([facility] V24, [facility] V28) (Primary Dx); Moderate episode of recurrent major depressive disorder ([facility] V24, [facility] V28); 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; CKD (chronic kidney disease) stage 2, GFR 60-89 ml/min; Orthostatic dizziness; Restless leg syndrome; Mixed hyperlipidemia; Breast nodule; Breast pain, left; Disorder of breast, unspecified; Benign neoplasm of left breast; Chronic pain syndrome; Fibromyalgia; Cervical radiculopathy; Keenan's esophagus determined by endoscopy; Intertrigo; Need for influenza vaccination 03/03/2025 1:00 PM EDT Office Visit Orthopedic Surgery [address] [phone] Tristian Sibley DPM Rheumatoid arthritis involving both feet with positive rheumatoid factor ([facility] V24, [facility] V28) (Primary Dx); Dermatophytosis of nail; Diabetic mononeuropathy simplex ([facility] V24, [facility] V28); Type 2 diabetes mellitus with other diabetic kidney complication, with long-term current use of insulin ([facility] V24, [facility] V28); Pain in toe of right foot; Pain in toe of left foot from Last 3 Months Immunizations Immunization Administration Dates Next Due COVID-19 (Moderna/Spikevax) 12yo and older 04/01/2024,06/20/2023 COVID-19 (Pfizer/Comirnaty) 12yo and older 03/25/2024 Influenza Quadravalent, MDCK , 0.5ml, preservative free (Flucelvax) 6mo and older 03/25/2024,04/27/2023,07/02/2018 Influenza Quadravalent, MDCK , 0.5ml, with preservative (Flucelvax) 6mo and older 05/27/2021,04/15/2020,04/18/2019,04/19 Influenza Quadravalent, rené mbinant, 0.5ml, preservative free (Flublok) 18yo and older 05/09/2022,04/15/2020 Influenza Quadrivalent, 0.5m l, preservative free (Fluarix; FluLaval; Fluzone) ages 6mo and older (Afluria) 3yo and older 05/27/2021,04/18/2019,04/19/2017,05/24 Influenza trivalent, MDCK, 0 .5mL, preservative free (Flucelvax) 6mo and older 03/25/2025 Influenza trivalent, recombi nant, 0.5mL, preservative free (Flublok) 9yo and older 04/01/2024 Influenza, Unspecified 04/18/2019 Pneumococcal conjugate 20 va lent (Prevnar 20, PCV 20) 2mo and older 09/26/2024 Pneumococcal polysaccharide 23 valent (Pneumovax 23) 2yo and older 02/07/2020 RSV, bivalent, protein subun it RSVpreF, 0.5mL, Preservative Free (Arexvy) 50yo and older 06/20/2023 Tdap Tetanus diptheria acell ular pertussis (Boostrix; Adacel) 7yo and older 01/18/2022 Zoster recombinant (Shingrix ) 19yo and older 03/27/2023,01/23/2023 Surgical History Surgery Date Site/Laterality Comments ROTATOR CUFF REPAIR Right DILATION AND CURETTAGE OF UTERUS COLONOSCOPY WISDOM TOOTH EXTRACTION UPPER GASTROINTESTINAL ENDOSCOPY CHOLECYSTECTOMY 12/12/24 TOTAL SHOULDER ARTHROPLASTY TRIGGER POINT INJECTION 11/2024 Medical History Medical History Date Comments Diabetes mellitus ([facility] V24, [facility] V28) Rheumatoid arthritis ([facility] V24, [facility] V28) Fibromyalgia Vertigo Hypothyroid Hyperlipidemia Chronic kidney disease states st age 4 Asthma Sleep apnea IBS (irritable bowel syndrome) Neuropathy Adverse effect of anesthesia Depression Joint pain Fractures Motion sickness Concussion 10/02/2024 Bulimia ([facility] V28) YOUNG A DULT Keenan esophagus Chronic diarrhea GERD (gastroesophageal reflux disease) Headache Diverticulitis of colon 27years ago Spinal stenosis Allergic rhinitis Obesity GI (gastrointestinal bleed) ?4weeks ago Peptic ulceration Visual impairment Bursitis of shoulder Food intolerance Radius and ulna distal fracture PONV (postoperative nausea and vomiting) after wisdom teeth removal Fracture of arm 07/27/2018 Cervical disc disorder Lumbosacral disc disease Thoracic disc disease Rotator cuff syndrome Frozen shoulder 09/07/1993 Bursitis of hip Inflammatory bowel disease Cholelithiasis Wrist sprain Bunion Diverticulosis 30 years ago Fracture, humerus Family History Medical History Relation Name Comments Dementia Father Edgardo- Heart disease Father Edgardo- Hyperlipidemia Father Edgardo- Diabetes Maternal Grandmother Murial- Arthritis Mother Ileana- Early Mother Ileana- Hyperlipidemia Mother Ileana- Breast cancer Other aunts paternal Relation Name Status Comments Father Edgardo- Alive Maternal Grandmother Murial- Alive Mother Ileana- Alive Other aunts paternal Social History Tobacco Use Types Packs/Day Years Used Date Smoking Tobacco: Never Smokeless Tobacco: Never Alcohol Use Standard Drinks/Week Comments Never 0 (1 standard drink = 0.6 oz pur e alcohol) Housing Instability Answer Date Recorde d Are you worried that in the next 2 months you may not have stable housing? No 05/08/2025 Food Access & Nutrition Answer Date Rec orded Do you have access to a vari ety of food including fruits and vegetables? Yes 05/08/2025 Access to Healthcare Answer Date Record ed Within the last 3 months, ho w many times did you visit the emergency department for your medical care? 0 05/08/2025 Health Literacy Answer Date Recorded How often do you need to hav e someone help you when you read instructions, pamphlets, or other written material from your doctor or pharmacy? Never 05/08/2025 Caregiver: How often do you need to have someone help you when you read instructions, pamphlets, or other written material from your doctor or pharmacy? Not on file 05/08/2025 Financial Risk Answer Date Recorded How hard is it for you to pa y for the very basics like food, housing, medical care, and air conditioning / heating? Somewhat hard 05/08/2025 Transportation Answer Date Recorded Has the lack of transportati on kept you from meetings, work, or from getting things needed for daily living? No Has the lack of transportati on kept you from medical appointments or from getting medications? No 05/08/2025 Social Isolation Answer Date Recorded How often do you feel lonely or isolated from th ose around you? Often 05/08/2025 Food Risk Answer Date Recorded Within the past 12 months we worried whether our food would run out before we got money to buy more. Not on file 05/08/2025 Within the past 12 months th e food we bought just didn't last and we didn't have money to get more. Never true 05/08/2025 Dependent Care Answer Date Recorded Do you need help finding or paying for care for your loved ones. For example, child development instructor or elderly care for an older adult? No 05/08/2025 Education Answer Date Recorded Do you think completing more education or training, like finishing a GED, going to college, or learning a trade, would be helpful for you? No 05/08/2025 Employment and Income Answer Date Recor ded During the last four weeks, have you been actively looking for work? No 05/08/2025 Living Situation Answer Date Recorded What is your living situation? Unrecognized valu e 05/08/2025 Interpersonal Safety Answer Date Record ed Physical Abuse Unrecognized value 12/13/2024 Verbal Abuse Unrecognized value 12/13/2024 Comments No Sex and Gender Information Value Date Recorded Sex Assigned at Female 10/06/2024 10:52 AM EDT Legal Sex Female 8:08 PM EST Gender Identity Female 10/06/2024 10:52 AM EDT Sexual Orientation Straight 10/06/2024 10 :52 AM EDT Obstetrics History Para Term AB IAB SAB Ectopic Multiple Livin g Live Births 0 0 0 0 Last Filed Vital Signs Vital Sign Reading Time Taken Comments Blood Pressure 118/66 03/25/2025 12:41 PM EDT Pulse 104 03/25/2025 12:41 PM EDT Temperature 35.7 C (96.2 F) 03/25/2025 12:41 PM EDT Respiratory Rate 14 12/15/2024 8:01 AM EDT Oxygen Saturation 97% 03/25/2025 12:41 PM EDT Inhaled Oxygen Concentration - - Weight 99.8 kg (220 lb) 03/25/2025 12:41 PM EDT Height 167.6 cm (5' 5.98 ) 03/25/2025 12:41 PM E DT Body Mass Index 35.53 03/25/2025 12:41 PM EDT Plan of Treatment Upcoming Encounters Date Type Department Care Team (Late st Contact Info) Description 06/02/2025 1:00 PM EST Office Visit Orthopedic Surgery [facility] [address] [phone] Tristian Sibley, DPM [address] [phone] 06/03/2025 2:30 PM EST Consult Breast Care Center [facility] [address] [place] [phone] Sylvia Stroud MD 230 [place] [phone] 07/08/2025 1:30 PM EST Office Visit Adult Medicine [place] [id number] [place], [place] [phone] Donal Falk MD 4 [place], [place] Health Maintenance Due Date Last Done Comments Diabetes: Annual Foot Exam 1972 Cervical Cancer Screening: Pap Smear 1983 HIV Screening 07/19/2023 Medicare Annual Wellness Visit 07/19/2023 Diabetes: Annual Retina Eye Exam 05/07/2024 05/07/2023 COVID-19 Vaccine ( season) 2025 04/01/2024, 03/25/2024, 06/20/2023, Additional history exists Diabetes: Blood Sugar Control Test (HGBA1C) 10/05/2025 04/06/2025, 09/24/2024, 11/29/2023, Additional history exists Diabetes: Annual GFR (Glomerular Filtration Rate) 12/15/2025 12/15/2024, 12/14/2024, 12/13/2024, Additional history exists Hypertension/CHF/CAD Annual BMP Blood Test 12/15/2025 12/15/2024, 12/14/2024, 12/13/2024, Additional history exists Diabetes: Annual Urine Albumin-Creatinine Ratio (uACR) 01/14/2026 01/14/2025, 09/26/2024, 03/04/2024, Additional history exists Social Influencers of Health Screening 05/08/2026 05/08/2025 Breast Cancer Screening 11/03/2026 11/03/2024, 09/15 Cholesterol Screening (Lipid Panel) 04/06/2030 04/06/2025, 09/24/2024, 05/02/2023 DTaP,Tdap,and Td Vaccines (2 - Td or Tdap) 01/19/2032 01/18/2022 Colorectal Cancer Screening: Colonoscopy 11/19/2034 11/19/2024 Zoster Vaccines Completed 03/27/2023, 01/23/2023 Hepatitis C Screening Completed 05/02/2023, 020 RSV Immunization Adult Patients Completed 06/20/2023 Pneumococcal Vaccine: 50+ Years Completed 09/26/2024, 02/07/2020 Influenza Vaccine Completed 03/25/2025, , 03/25/2024, Additional history exists Depression Screening Completed 05/08/2025 HIB Vaccines Aged Out No longer eligi ble based on patient's age to complete this topic HPV Vaccines Aged Out No longer eligi ble based on patient's age to complete this topic Hepatitis A Vaccines Aged Out No long er eligible based on patient's age to complete this topic Hepatitis B Vaccines Aged Out No long er eligible based on patient's age to complete this topic IPV Vaccines Aged Out No longer eligi ble based on patient's age to complete this topic MMR Vaccines Aged Out No longer eligi ble based on patient's age to complete this topic Meningococcal ACWY Vaccine Aged Out N o longer eligible based on patient's age to complete this topic Meningococcal B Vaccine Aged Out No l onger eligible based on patient's age to complete this topic RSV Immunization Patients Under 20 months Aged Out No longer eligible based on patient's age to complete this topic Varicella Vaccines Aged Out No longer eligible based on patient's age to complete this topic Goals Goal Patient Goal Type Associated Problems Recent Progress Patient-Stated? Author STG 4 visits General Yes Liban Munoz, PT Note: Pt will be independent in HEP to manage chronic dizziness. 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 LIPID PANEL WITH REFLEX TO DIRECT LDL Routine 04/06/2025 2:11 PM EDT Mixed hyperlipidemia EXTERNAL CLINICAL LAB 03/27/2025 BASIC METABOLIC PANEL Routine 12/15/2024 5:50 AM EDT COLONOSCOPY Routine 11/19/2024 5:06 PM EDT MG MAMMO DIGITAL SCREENING W NATHAN BILAT Routine 11/03/2024 2:51 PM EDT Encounter for screening mammogram for malignant neoplasm of breast MICROALBUMIN CREATININE URINE RATIO Routine 09/26/2024 10:11 AM EDT 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 Mixed hyperlipidemia Type 2 diabetes mellitus with diabetic microalbuminuria, with long-term current use of insulin ([facility] V24, [facility] V28) Leukocytosis, unspecified type DIABETES EYE EXAM Routine 05/07/2023 HEPATITIS C SCREENING Routine 05/02/2023 from Last 3 Months or Most Recently Relevant to Health Maintenance Results * US Breast Limited Left (04/06/2025 2:11 PM EDT) Anatomical Region Laterality Modality Breast Left Ultrasound 04/06/2025 2:18 PM EDT Impressions 04/06/2025 2:51 PM EDT Palpable left breast lump corresponds with what appears to be an epidermal inclusion cyst with surrounding inflammatory change. Clinical management recommended. BI-RADS CATEGORY: 2 - BENIGN RECOMMENDATION: Clinical management of left breast is recommended. ULTRASOUND LOCATION: [facility], [address] [place] [address], [id number], [facility], [address] [place] [address], [id number], -------- FINAL REPORT -------- Dictated By: Aparna Woodward Dictated Date: 04/06/2025 14:18 ET Assigned Physician: Aparna Woodward Reviewed and Electronically Signed By: Aparna Woodward Signed Date: 04/06/2025 14:51 ET Workstation ID: [id number] Transcribed By: Self Edit Transcribed Date: 04/06/2025 14:43 ET Narrative 04/06/2025 2:51 PM EDT EXAM: Left breast ultrasound CLINICAL: 64 years old, Female, with a small pustule at approximately the 5 o'clock position of the left breast for 3 weeks which ruptured. Patient notes a palpable lump in the area with minimal skin erythema. COMPARISON: None FINDINGS: Patient delineated the palpable area of concern at the 4 o'clock position, 14 cm from the nipple. Sonography shows a corresponding 1.0 x 0.8 x 0.6 cm hyperechoic area with indistinct margins in the superficial soft tissues. It has a 0.3 cm central anechoic component from which a thin tract extends to the skin where a thin anechoic area is present. This probably represents an epidermal inclusion cyst with surrounding inflammatory change. Procedure Note Aparna Woodward MD - 04/06/2025 EXAM: Left breast ultrasound CLINICAL: 64 years old, Female, with a small pustule at approximately the5 o'clock position of the left breast for 3 weeks which ruptured. Patientnotes a palpable lump in the area with minimal skin erythema. COMPARISON: None FINDINGS: Patient delineated the palpable area of concern at the 4 o'clock position,14 cm from the nipple. Sonography shows a corresponding 1.0 x 0.8 x 0.6cm hyperechoic area with indistinct margins in the superficial softtissues. It has a 0.3 cm central anechoic component from which a thintract extends to the skin where a thin anechoic area is present. Thisprobably represents an epidermal inclusion cyst with surroundinginflammatory change. IMPRESSION: Palpable left breast lump corresponds with what appears to be an epidermalinclusion cyst with surrounding inflammatory change. Clinical managementrecommended. BI-RADS CATEGORY: 2 - BENIGN RECOMMENDATION: Clinical management of left breast is recommended. ULTRASOUND LOCATION: [facility], [address] [place] [address], [id number], [facility],[address] [place] [address], [address], -------- FINAL REPORT -------- Dictated By: Aparna Woodward Dictated Date: 04/06/2025 14:18 ET Assigned Physician: Aparna Woodward Reviewed and Electronically Signed By: Aparna Woodward Signed Date: 04/06/2025 14:51 ET Workstation ID: [id number] Transcribed By: Self Edit Transcribed Date: 04/06/2025 14:43 ET us Donal Falk MD IMG US PROCEDURE S Final Result * Thyroid stimulating hormone with reflex to free t4 and free t3 (04/06/2025 2:11 PM EDT) TSH 1.89 0.40 - 4.00 mcIU/mL LAB CHEMISTRY METHOD 04/06/2025 5:29 PM EDT [facility] Blood Venous blood specimen / Unknown Venipuncture / Unknown 04/06/2025 2:11 PM EDT 04/06/2025 2:11 PM EDT Donal Falk MD LAB BLOOD ORDERA BLES Final Result [facility] [address] [place] [address], [place] [phone] * (ABNORMAL) Lipid panel with reflex to direct LDL (04/06/2025 2:11 PM EDT) Cholesterol 193 0 - 200 mg/dL LAB CHEMISTRY METHOD 04/06/2025 4:58 PM EDT [facility] Triglycerides 245(H) 0 - 150 mg/dL LAB CHEMISTRY METHOD 04/06/2025 4:58 PM EDT [facility] HDL 66 >=40 mg/dL LAB CHEMISTRY METHOD 04/06/2025 4:58 PM EDT [facility] LDL Calculated 78 0 - 100 mg/dL LAB CHEMISTRY METHOD 04/06/2025 4:58 PM EDT [facility] Comment:Estimated LDL Calcul ated using equation: Total cholesterol - HDL cholesterol - (Triglycerides/5) VLDL Cholesterol Edinson 49 mg/dL LAB CHEMISTRY METHOD 04/06/2025 4:58 PM EDT [facility] Non HDL Chol. (LDL+VLDL) 127 <145 mg/dL LAB CHEMISTRY METHOD 04/06/2025 4:58 PM EDT [facility] Chol/HDL Ratio 2.9 0.0 - 4.4 LAB CHEMISTRY METHOD 04/06/2025 4:58 PM EDT [facility] Blood Venous blood specimen / Unknown Venipuncture / Unknown 04/06/2025 2:11 PM EDT 04/06/2025 2:11 PM EDT Donal Falk MD LAB BLOOD ORDERA BLES Final Result [facility] [address] [place] [address], * (ABNORMAL) Hemoglobin A1c (04/06/2025 2:11 PM EDT) Hemoglobin A1C 7.0(H) <6.5 % LAB CHEMISTRY METHOD 04/06/2025 9:47 PM EDT [facility] Mean Bld Glu Estim. 154 mg/dL LAB CHEMISTRY METHOD 04/06/2025 9:47 PM [facility] Blood Venous blood specimen / Unknown Venipuncture / Unknown 04/06/2025 2:11 PM EDT 04/06/2025 2:11 PM EDT Donal Falk MD LAB BLOOD ORDERA BLES Final Result [facility] [address] [place] [address], [place] [phone] * External clinical lab (03/27/2025) us Provider [facility] LAB BLOOD ORDERABLES Fin al Result * (ABNORMAL) Basic metabolic panel (12/15/2024 5:50 AM EDT) Sodium 138 133 - 145 mmol/L LAB CHEMISTRY METHOD 12/15/2024 7:12 AM [facility] Potassium 3.6 3.5 - 5.5 mmol/L LAB CHEMISTRY METHOD 12/15/2024 7:12 AM [facility] Chloride 103 96 - 110 mmol/L LAB CHEMISTRY METHOD 12/15/2024 7:12 AM [facility] CO2 27 21 - 32 mmol/L LAB CHEMISTRY METHOD 12/15/2024 7:12 AM [facility] Anion Gap 8 3 - 11 LAB CHEMISTRY METHOD 12/15/2024 7:12 AM [facility] Glucose 148(H) 70 - 100 mg/dL LAB CHEMISTRY METHOD 12/15/2024 7:12 AM [facility] BUN 4(L) 5 - 25 mg/dL LAB CHEMISTRY METHOD 12/15/2024 7:12 AM [facility] Creatinine 0.65 0.50 - 1.10 mg/dL LAB CHEMISTRY METHOD 12/15/2024 7:12 AM EDT [facility] eGFR 100 >=60 mL/min/1. 73m2 LAB CHEMISTRY METHOD 12/15/2024 7:12 AM EDT [facility] Comment:Calculation based on the Chronic Kidney Disease Epidemiology Collaboration (CKD-EPI) equation refit without adjustment for race. BUN/Creatinine Ratio 6.2 LAB CHEMISTRY METHOD 12/15/2024 7:12 AM EDT [facility] Calcium 8.6 8.5 - 10.5 mg/dL LAB CHEMISTRY METHOD 12/15/2024 7:12 AM EDT [facility] Blood Venous blood specimen / Unknown Venipuncture / Unknown 12/15/2024 5:50 AM EDT 12/15/2024 6:16 AM EDT Alyssa BRODERICK LAB BLOOD ORDERABLES Final Resul t [facility] [address] [place] [address], * COLONOSCOPY (11/19/2024 5:06 PM EDT) Anatomical Region Laterality Modality Endoscopy Historical Provider GI~PROCEDURE ORDERABLES F inal Result * MG Mammo Digital Screening w Nathan bilat (11/03/2024 2:51 PM EDT) Anatomical Region Laterality Modality Breast Bilateral Mammography 11/04/2024 12:3 9 PM EDT Impressions 11/04/2024 12:49 PM EDT 1. No mammographic evidence of malignancy 2. Scattered fibroglandular tissue BI-RADS CATEGORY: 2 - BENIGN RECOMMENDATION: Screening bilateral mammogram is recommended in 1 year. Mammo Location: [facility], [address] [place] [address], [phone], . -------- FINAL REPORT -------- Dictated By: Marog Salazar Dictated Date: 11/04/2024 12:39 ET Assigned Physician: Margo Salazar Reviewed and Electronically Signed By: Margo Salazar Signed Date: 11/04/2024 12:49 ET Workstation ID: [id number] Transcribed By: Self Edit Transcribed Date: 11/04/2024 12:39 ET Narrative 11/04/2024 12:49 PM EDT A BILATERAL DIGITAL 3D SCREENING MAMMOGRAPHY HISTORY: Routine screening. COMPARISON: Multiple priors dating back to 09/12/2021 Technique: Bilateral full field digital mammography (3D) was performed using standard CC and MLO projections CAD was used to evaluate this mammogram. FINDINGS: Right: No suspicious masses, groups of microcalcification or areas of architectural distortion identified. Stable typically benign parenchymal asymmetries. Left: No suspicious masses, groups of microcalcification or areas of architectural distortion identified. Stable typically benign parenchymal asymmetries. BREAST DENSITY: B - There are scattered areas of fibroglandular density. Procedure Note Margo Salazar MD - 11/04/2024 A BILATERAL DIGITAL 3D SCREENING MAMMOGRAPHY HISTORY: Routine screening. COMPARISON: Multiple priors dating back to 09/12/2021 Technique: Bilateral full field digital mammography (3D) was performedusing standard CC and MLO projections CAD was used to evaluate this mammogram. FINDINGS: Right: No suspicious masses, groups of microcalcification or areas ofarchitectural distortion identified. Stable typically benign parenchymalasymmetries. Left: No suspicious masses, groups of microcalcification or areas ofarchitectural distortion identified. Stable typically benign parenchymalasymmetries. BREAST DENSITY: B - There are scattered areas of fibroglandular density. IMPRESSION: 1. No mammographic evidence of malignancy 2. Scattered fibroglandular tissue BI-RADS CATEGORY: 2 - BENIGN RECOMMENDATION: Screening bilateral mammogram is recommended in 1 year. Mammo Location: [facility], [address] [place] [address], [address], . -------- FINAL REPORT -------- Dictated By: Margo Salazar Dictated Date: 11/04/2024 12:39 ET Assigned Physician: Margo Salazar Reviewed and Electronically Signed By: Margo Salazar Signed Date: 11/04/2024 12:49 ET Workstation ID: [id number] Transcribed By: Self Edit Transcribed Date: 11/04/2024 12:39 ET Donal Falk MD IMG BI PROCEDURE S Final Result * Microalbumin creatinine urine ratio (09/26/2024 10:11 AM EDT) [facility] Creatinine, Urine 181.0 mg/dL LAB CHEMISTRY METHOD 09/26/2024 2:31 PM EDT [facility] Microalb, Ur 15.6 0.0 - 29.0 mg/L LAB CHEMISTRY METHOD 09/26/2024 2:31 PM EDT [facility] Microalb/Creat Ratio 9 <30 mg/g creat LAB CHEMISTRY METHOD 09/26/2024 2:31 PM EDT [facility] Urine Urine specimen obtained by clean catch procedure / Unknown Non-blood Collection / Unknown 09/26/2024 10:11 AM EDT 09/26/2024 10:11 AM EDT Donal Falk MD LAB URINE ORDERA BLES Final Result [facility] [address] [place] [address], [place] [phone] * Diabetes Eye Exam (05/07/2023) [facility] Diabetes: Annual Retina Eye Exam Abstracted Historical Provider HEALTH MAINTENANCE Final Result * Hepatitis C Screening (05/02/2023) [facility] Hepatitis C Screening Abstracted Historical Provider HEALTH MAINTENANCE Final Result from Last 3 Months or Most Recently Relevant to Health Maintenance Insurance [employer] Advance Directives Documents on File Type Date Recorded 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 Do not modify or discontinue any currently active code status orders. Care Teams Clerk Travel Reservations Relationship Specialty Start Date End Date Donal Falk MD [address] [place] [address] PCP - General 11/14/22
--- OUTSIDE RECORDS SUMMARY | 2025-05-25 16:44 | XMS_ITS ---
Author Name [facility] Organization Unknown Care Team Organization Name Specialty Phone Email Start Date End Da te [facility] 02/11/2025 [facility] WILFRID FERREIRA Primary Care [email or web address] 12/28/2022 4
--- OUTSIDE RECORDS SUMMARY | 2025-05-25 16:44 | XMS_ITS | Encounter Summary ---
Author Organization [facility] Address [address] [place] [address] Phone Care Team Providers Care Phlebotomist Medical Lab Assistant Name Role Phone Baylee Guerrero DO Primary Care Provider [phone] Baylee Guerrero DO Unavailable [phone] Cristina Block MD Unavailable Lucila Madrid RN Unavailable [phone] Catalina Mcclelland RN Unavailable [email or web address] Sisi Christensen RN Unavailable [phone] Joellen Green DO Primary Care Provider [phone] Ghanshyam Kc RN Unavailable [email or web address] Nieves Werner MD Unavailable [phone] Bonny Saenz RN Unavailable [email or web address] Pcp, Unknown Primary Care Provider Unavailabl e Joellen Green DO Primary Care Provider [phone] Joellen Green DO Unavailable [phone] Joellen Green DO Primary Care Provider [phone] Donal Falk MD Primary Care Pr ovider Encounter Details Date Type Department Care Team (Late st Contact Info) Description 07/04/2018 Transcribe Orders [facility] [place] [address] [place] [address] Kalie Bayleegaston Weber, DO [address] [address] [email or web address] Mixed stress and urge urinary incontinence (Primary Dx) Social History Tobacco Use Types Packs/Day Years [...] 12:10 PM EST Office Visit [facility] [address] [place] [address] Main[address] [address] documented as of this encounter Results * (ABNORMAL) Urinalysis w/reflex Urine Culture (07/04/2018 3:53 PM EST) COLOR Yellow Yellow [facility] CLARITY SLIGHTLY CLOUDY(A) Clear [facility] SPECIFIC GRAVITY 1.006 1.001 - 1.030 [facility] BLOOD Negative Negative [facility] BILI Negative Negative [facility] KETONES Negative Negative [facility] GLUCOSE Negative Negative [facility] URINE PROTEIN Negative Negative [facility] PH 6.0 5 - 8 [facility] Leukocyte esterase, ur 3+(A) Negative [facility] NITRITE Negative Negative [facility] UROBILINOGEN Negative Negative [facility] RBC 2 0 - 3 /hpf [facility] WBC 48(H) 0 - 9 /hpf [facility] BACTERIA Many(A) NONE SEEN [facility] SQUAMOUS CELLS 10(H) 0 - 4 [place] [facility] HYALINE CAST 1 0 - 2 /lpf [facility] WBC CLUMPS Rare(A) None /hpf [facility] Urine (Urine) 07/04/2018 3:5 3 PM EST 07/04/2018 6:30 PM EST Baylee Guerrero DO LAB URINE ORDERABLES Edite d Result - Final [facility] [address] [place] [address] documented in this encounter Visit Diagnoses Diagnosis Mixed stress and urge urinary incontinence- Primary Mixed incontinence urge and stress (male)(female) documented in this encounter Additional Health Concerns Infection Onset Date Last Indicated Resolved Time CoV-Exposed Comment:Recent close contact documented in the COVID-19 Amb Triage Form 06/05/2021 06/06/2021 06/20/2021 1:[address] CoV-Presumed 07/05/2021 07/05/2021 07/20/2021 3:53 PM EST CoV-Presumed 07/18/2022 07/18/2022 08/08/2022 1:23 AM EST Assessment Noted Time PHQ-9 Depression Total Score: 8 11/30/19 18 1:21 PM EDT PHQ-2 Depression Total Score: 3 11/30/19 18 1:21 PM EDT documented as of this encounter Care Teams Phlebotomist Medical Lab Assistant Relationship Specialty Start Date End Date Baylee Guerrero DO PCP - General 08/22/14 05/31/20 Joellen Green DO 3 Kelsea Cadena [address] [address] PCP - General Family Medicine 06/01/20 06/11/22 Pcp, Unknown PCP - General 06/12/22 07/17/22 Joellen Green DO 3 [facility] [address] [place] [address] [email or web address] PCP - General Family Medicine 07/18/22 11/07/22 Joellen Green DO [address] Dasilva [address] [place] [phone] [email or web address] PCP - General Family Medicine 11/08/22 05/14/23 Donal Falk MD [address] Dasilva [address] [place] [address] PCP - General Family Medicine 05/15/23 Baylee Guerrero DO [address] [address] [email or web address] Insurance Assigned Provider 12/26/15 10/02/20 Cristina Block MD [address] [place] [address] [email or web address] Historical LMR Provider 01/07/17 07/02/21 Lucila Madrid RN [address] [place] [phone] [email or web address] Registered Nurse 03/20/17 Catalina Mcclelland, KAREEM [address] [place] [phone] [email or web address] TMP Transfusion Nurse 07/31/18 08/29/19 Sisi Christensen, KAREEM [address] [place] [address] [email or web address] TMP Transfusion Nurse 08/29/19 03/29/21 Ghanshyam Kc, KAREEM [address] [address] [email or web address] TMP Transfusion Nurse 03/29/21 08/03/21 Nieves Werner MD [address] [place] [address] Cardiology 05/30/21 Bonny Saenz RN [address] [place] [address] [email or web address] TMP Transfusion Nurse 08/04/21 05/11/22 Joellen Green DO 3 Kelsea Cadena [address] [address] [email or web address] Insurance Assigned Provider 10/02/20 09/30/22 documented as of this encounter Additional Source Comments The information contained in this document represents components of the legal health record. It is not the complete legal health record.[facility]
--- OUTSIDE RECORDS SUMMARY | 2025-05-25 16:44 | XMS_ITS | Encounter Summary ---
Author Organization [facility] Address [address] [place] [address] Phone Care Team Providers Care Slot Tag Inserter Name Role Phone Cristina Block MD Unavailable Lucila Madrid RN Unavailable [phone] Joellen Green DO Primary Care Provider Ghanshyam Kc RN Unavailable [email or web address] Nieves Werner MD Unavailable [phone] Bonny Saenz RN Unavailable [email or web address] Pcp, Unknown Primary Care Provider Unavailabl e Joellen Green DO Primary Care Provider [phone] Joellen Green DO Unavailable [phone] Joellen Green DO Primary Care Provider [phone] Donal Falk MD Primary Care Pr ovider Encounter Details Date Type Department Care Team (Late st Contact Info) Description 06/08/2021 Telephone [facility] at [address] [address] Paula Social History Tobacco Use Types Packs/Day Years [...] 12:10 PM EST Office Visit [facility] [address] [place] [address] Mainor Cody DO [address] [place] [address] [email or web address] documented as of this encounter Goals [...] documented as of this encounter Care Teams Slot Tag Inserter Relationship Specialty Start Date End Date Joellen Green DO [address] Cad[address] [address] [email or web address] PCP - General Family Medicine 06/01/20 06/11/22 Pcp, Unknown PCP - General 06/12/22 07/17/22 Joellen Green DO 3 Kelsea Dasilva [address] [place] [address] [email or web address] PCP - General Family Medicine 07/18/22 11/07/22 Joellen Green DO 3 [place] [address] [email or web address] PCP - General Family Medicine 11/08/22 05/14/23 Donal Falk MD 3 Kelsea Dasilva [address] [place] [address] PCP - General Family Medicine 05/15/23 Cristina Block MD [address] [place] [address] [email or web address] Historical LMR Provider 01/07/17 07/02/21 Lucila Madrid RN [address] [place] [address] [email or web address] Registered Nurse 03/20/17 Ghanshyam Kc, KAREEM 3 Kelsea Dasilva [address] [place] [address] [email or web address] TMP Cloth Desizing Range Tender 03/29/21 08/03/21 Nieves Werner MD [address] [place] [address] [email or web address] Cardiology 05/30/21 Bonny Saenz RN [address] [place] [address] [email or web address] TMP Cloth Desizing Range Tender 08/04/21 05/11/22 Joellen Green DO 3 Kelsea Cadena [address] [address] [email or web address] Insurance Assigned Provider 10/02/20 09/30/22 documented as of this encounter Additional Source Comments The information contained in this document represents components of the legal health record. It is not the complete legal health record.[facility]
--- OUTSIDE RECORDS SUMMARY | 2025-05-25 16:44 | XMS_ITS | Encounter Summary ---
Author Organization [facility] Address [address] [facility] [address] [place] [address] Phone Care Team Providers Care Supervising Broker Name Role Phone Lucila Madrid RN Unavailable [phone] Joellen Green DO Primary Care Provider [phone] Nieves Werner MD Unavailable [phone] Bonny Saenz RN Unavailable [email or web address] Pcp, Unknown Primary Care Provider Unavailabl e Joellen Green DO Primary Care Provider Joellen Green DO Unavailable Joellen Green DO Primary Care Provider Donal aFlk MD Primary Care Pr ovider Encounter Details Date Type Department Care Team (Late st Contact Info) Description 11/17/2021 Ancillary Orders [facility] 3 Kelsea Cadena [address] [place] [address] Joellen Green DO 3 Kelsea Cadena [address] [place], [place] [id number] Visit for screening Social History Tobacco Use Types Packs/Day Years [...] PM EST Office Visit [facility] [address] [place] [address] Mainor Cody DO [address] [place] [address] [email or web address] documented as of this encounter Goals Goal Patient Goal Type Associated Problems Recent Progress Patient-Stated? Author Reduce and/or manage chronic pain Care Plan Chronic Pain/Pain Management Issues No change(2020 1:36 PM EDT) No Sisi Christensen, RN Note: Barriers: Access to Medications documented as of this encounter Results * BI MAMMOGRAM SCREENING WITH TOMOSYNTHESIS WITH [...] monitor and facilitate patient compliance. us Joellen Green DO IMG MG EXAMS Final Resul t documented in this encounter Visit Diagnoses Diagnosis Visit for screening Visit for screening documented in this encounter Additional Health Concerns Active Problems Noted Date Diagnosed Date Chronic Pain/Pain Management Issues 10/24/2019 Infection Onset Date Last Indicated Resolved Time CoV-Presumed 07/18/2022 07/18/2022 08/08/2022 1:23 AM EST Assessment Noted Time PHQ-9 Depression Total Score: 8 11/30/19 18 1:21 PM EDT PHQ-2 Depression Total Score: 2 03/15/20 21 12:41 PM EDT documented as of this encounter Care Teams Supervising Broker Relationship Specialty Start Date End Date Joellen Green DO Eli Dasilva [facility] [place] [address] PCP - General Family Medicine 06/01/20 06/11/22 Pcp, Unknown PCP - General 06/12/22 07/17/22 Joellen Green DO 3 Kelsea Dasilva [facility] [place] [address] [email or web address] PCP - General Family Medicine 07/18/22 11/07/22 Joellen Green DO 3 Kelsea Dasilva [address] [place] [address] [email or web address] PCP - General Family Medicine 11/08/22 05/14/23 Donal Falk MD 3 Kelsea Dasilva [address] [place] [address] PCP - General Family Medicine 05/15/23 Lucila Madrid RN 2013 [place] [address] [email or web address] Registered Nurse 03/20/17 Nieves Werner MD [address] [place] [address] [email or web address] Cardiology 05/30/21 Bonny Saenz RN [address] [place] [address] [email or web address] Wage And Salary Specialist 08/04/21 05/11/22 Joellen Green DO 3 Kelsea Dasilva [address] [place] [address] [email or web address] Insurance Assigned Provider 10/02/20 09/30/22 documented as of this encounter Additional Source Comments The information contained in this document represents components of the legal health record. It is not the complete legal health record.[facility]
--- OUTSIDE RECORDS SUMMARY | 2025-05-25 16:44 | XMS_ITS | Encounter Summary ---
Author Organization [facility] Address [address] [address] Phone Care Team Providers Care Willow Analyst Name Role Phone Lucila Madrid RN Unavailable [phone] Joellen Green DO Primary Care Provider Ghanshyam Kc RN Unavailable [email or web address] Nieves Werner MD Unavailable [phone] Bonny Saenz RN Unavailable [email or web address] Pcp, Unknown Primary Care Provider Unavailabl e Joellen Green DO Primary Care Provider [phone] Joellen Green DO Unavailable [phone] Joellen Green DO Primary Care Provider [phone] Donal Falk MD Primary Care Pr ovider Encounter Details Date Type Department Care Team (Late st Contact Info) Description 07/04/2021 Ancillary Orders [facility] Imaging - Diagnostic Radiology, Main [place] [address] [place] [address] Tristian Naik DO [address] [place] [address] Rheumatoid arthritis, involving unspecified site, unspecified whether rheumatoid factor present Social History Tobacco Use Types Packs/Day Years [...] 12:10 PM EST Office Visit [facility] [address] [place] [address] Mainor Cody DO [address] [place] [address] [email or web address] documented as of this encounter Goals Goal Patient Goal Type Associated Problems Recent Progress Patient-Stated? Author Reduce and/or manage chronic pain Care Plan Chronic Pain/Pain Management Issues No change(2020 1:36 PM EDT) No Sisi Christensen, RN Note: Barriers: Access to Medications documented as of this encounter Results * XR CERVICAL SPINE 4-5 VIEWS (06/27/2021 1:08 PM EST) Anatomical Region Laterality Modality C-spine Computed Radiogr aphy Impressions 06/27/2021 1:48 PM EST Extensive degenerative changes in the cervical spine, limited exam. Remote appearing posttraumatic changes of the right proximal humerus. Narrative 06/27/2021 1:48 PM EST XR CERVICAL SPINE 4-5 VIEWS, XR SHOULDER 2 OR MORE VIEWS (RIGHT) COMPARISON: None FINDINGS: Cervical spine: The right neural foramina are not well profiled on the oblique view. The left neural foramina show no evident stenosis, other than possible narrowing at C4-5. There is degenerative change evident throughout the cervical spine disc spaces from C3-4 on caudally with large anterior traction osteophytes noted. The cervicothoracic junction is not adequately visualized. A swimmer's view may be helpful. No prevertebral soft tissue swelling is seen. No gross fracture is noted. Right shoulder: There is remodeling noted at the proximal humeral metaphysis suggesting a remote healed fracture. No other more acute findings are noted. No substantial degenerative change at the AC joint or glenohumeral joint is noted. Tristian Naik DO [facility] XR SPINE Edite d Result - Final * XR SHOULDER 2 VIEWS (RIGHT) (06/27/2021 1:08 PM EST) Anatomical Region Laterality Modality Shoulder Right Computed Radiogr aphy Impressions 06/27/2021 1:48 PM EST Extensive degenerative changes in the cervical spine, limited exam. Remote appearing posttraumatic changes of the right proximal humerus. Narrative 06/27/2021 1:48 PM EST XR CERVICAL SPINE 4-5 VIEWS, XR SHOULDER 2 OR MORE VIEWS (RIGHT) COMPARISON: None FINDINGS: Cervical spine: The right neural foramina are not well profiled on the oblique view. The left neural foramina show no evident stenosis, other than possible narrowing at C4-5. There is degenerative change evident throughout the cervical spine disc spaces from C3-4 on caudally with large anterior traction osteophytes noted. The cervicothoracic junction is not adequately visualized. A swimmer's view may be helpful. No prevertebral soft tissue swelling is seen. No gross fracture is noted. Right shoulder: There is remodeling noted at the proximal humeral metaphysis suggesting a remote healed fracture. No other more acute findings are noted. No substantial degenerative change at the AC joint or glenohumeral joint is noted. Tristian Naik DO [facility] XR UPPER EXTREMIT Y Edited Result - Final documented in this encounter Visit Diagnoses Diagnosis Rheumatoid arthritis, involving unspecified site, unspecified whether rheumatoid factor present Rheumatoid arthritis, involving unspecified site, unspecified whether rheumatoid factor present documented in this encounter Additional Health Concerns [...] documented as of this encounter Care Teams Willow Analyst Relationship Specialty Start Date End Date Joellen Green DO 3 Kelsea Dasilva [address] [place] [address] [email or web address] PCP - General Family Medicine 06/01/20 06/11/22 Pcp, Unknown PCP - General 06/12/22 07/17/22 Joellen Green DO 3 [place] [address] [email or web address] PCP - General Family Medicine 07/18/22 11/07/22 Joellen Green DO 3 Kelsea Dasilva [address] [place] [address] [email or web address] PCP - General Family Medicine 11/08/22 05/14/23 Donal Falk MD 3 Kelsea Dasilva [address] [place] [address] PCP - General Family Medicine 05/15/23 Lucila Madrid RN [address] [place] [address] [email or web address] Registered Nurse 03/20/17 Ghanshyam Kc RN 3 Kelsea Dasilva [address] [place] [address] [email or web address] TMP Him Coder 03/29/21 08/03/21 Nieves Werner MD [address] [place] [address] [email or web address] Cardiology 05/30/21 Bonny Saenz, KAREEM [address] [place] [address] [email or web address] Him Coder 08/04/21 05/11/22 Joellen Green DO 3 Kelsea Cadena [address] [address] [email or web address] Insurance Assigned Provider 10/02/20 09/30/22 documented as of this encounter Additional Source Comments The information contained in this document represents components of the legal health record. It is not the complete legal health record.[facility]
--- OUTSIDE RECORDS SUMMARY | 2025-05-25 16:44 | XMS_ITS | Encounter Summary ---
Author Organization [facility] Address [address] [place] [address] Phone Care Team Providers Care Raw Cheese Worker Name Role Phone Cristina Block MD Unavailable Lucila Madrid RN Unavailable [phone] Joellen Green DO Primary Care Provider Ghanshyam Kc RN Unavailable [email or web address] Nieves Werner MD Unavailable [phone] Bonny Saenz RN Unavailable [email or web address] Pcp, Unknown Primary Care Provider Unavailabl e Joellen Green DO Primary Care Provider [phone] Joellen Green DO Unavailable [phone] Joellen Green DO Primary Care Provider [phone] Donal Falk MD Primary Care Pr ovider Encounter Details Date Type Department Care Team (Late st Contact Info) Description 06/23/2021 Ancillary Orders [facility] Central Scheduling [address] [place] [address] System, Provider Not In, [place] [address] Rheumatoid arthritis, involving unspecified site, unspecified whether [...] 12:10 PM EST Office Visit [facility] [address] [place] [address] [place] [address] Mainor Cody DO [address] [place] [address] [email or web address] documented as of this encounter Goals Goal Patient Goal Type Associated Problems Recent Progress Patient-Stated? Author Reduce and/or manage chronic pain Care Plan Chronic Pain/Pain Management Issues No change(2020 1:36 PM EDT) No Sisi Christensen, RN Note: Barriers: Access to Medications documented as of this encounter Visit Diagnoses Diagnosis Rheumatoid arthritis, [...] documented as of this encounter Care Teams Raw Cheese Worker Relationship Specialty Start Date End Date Joellen Green DO [address] [address] [email or web address] PCP - General Family Medicine 06/01/20 06/11/22 Pcp, Unknown PCP - General 06/12/22 07/17/22 Joellen Green DO 3 Kelsea Dasilva [address] [place] [address] [email or web address] PCP - General Family Medicine 07/18/22 11/07/22 Joellen Grene DO 3 Kelsea Dasilva [address] [place] [address] [email or web address] PCP - General Family Medicine 11/08/22 05/14/23 Donal Falk MD 3 Kelsea Dasilva [address] [place] [address] PCP - General Family Medicine 05/15/23 Cristina Block MD [address] [place] [address] [email or web address] Historical LMR Provider 01/07/17 07/02/21 Lucila Madrid RN [address] [place] [address] [email or web address] Registered Nurse 03/20/17 Ghanshyam Kc, KAREEM 3 Kelsea Dasilva [address] [place] [address] [email or web address] TMP Composing Machine Operator 03/29/21 08/03/21 Nieves Werner MD [address] [place] [address] Cardiology 05/30/21 Bonny Saenz, KAREEM [address] [place] [address] TMP Composing Machine Operator 08/04/21 05/11/22 Joellen Green DO 3 Kelsea Dasilva [address] [place] [address] [email or web address] Insurance Assigned Provider 10/02/20 09/30/22 documented as of this encounter Additional Source Comments The information contained in this document represents components of the legal health record. It is not the complete legal health record.[facility]
== END 2025-05-25 14:08 | disposition home or self-care (01) ==
LOC: HO.HPHYS 13:05
PROVIDERS: PCP Family Medicine; Visit Provider Physician Assistant
DX: M54.12 Radiculopathy, cervical region (principal); M79.10 Myalgia, unspecified site
CPT/HCPCS: 20553; 99213

== ENCOUNTER → 2025-05-25 13:04 | Outpatient (BNVA) | payer MEDICARE, SELFPAY | PROVIDERS: PCP Family Medicine; Visit Provider Physician Assistant | DX: M54.12 Radiculopathy, cervical region (principal); M79.18 Myalgia, other site; G89.29 Other chronic pain | CPT/HCPCS: 20553; 99212; J2003 ==